=== PATIENT | male | born 1945 | race Caucasian/White ===

== ENCOUNTER 2019-10-10 08:30 | Inpatient (IN) | payer MEDICARE, BC ==
--- NOTE | 2019-09-30 18:26 | HP ---
HISTORY AND PHYSICAL: DATE OF ADMISSION/SURGERY: 10/10/19 DATE OF OFFICE VISIT: 09/29/19 SURGEON: Sydney Cunningham MD.* (DICTATED BY ARY LOVE) PROCEDURE: Left total knee arthroplasty. CHIEF COMPLAINT: Left knee pain. HISTORY OF PRESENT ILLNESS: Mr. Mehta is a 74-year-old gentleman with end - stage osteoarthritis of the left knee. He has failed conservative treatment and elected to proceed with left total knee arthroplasty. PAST MEDICAL HISTORY: Hypertension, hyperlipidemia, diabetes, sleep apnea, AFib , GERD, chronic kidney disease, and COPD. PAST SURGICAL HISTORY: Appendectomy, vasectomy, right total hip arthroplasty, cataract removal. CURRENT MEDICATIONS: 1. Rosuvastatin 10 mg daily. 2. Furosemide 20 mg a day. 3. Pantoprazole 40 mg a day. 4. Lisinopril 5 mg a day. 5. Amlodipine 200 mg a day. 6. Eliquis 5 mg twice a day. 7. Carvedilol 25 mg twice a day. 8. Spiriva daily. 9. Advair twice daily. 10. Iron. 11. Finasteride 5 mg a day. 12. Allopurinol 300 mg a day. 13. Vitamin D. ALLERGIES: No known drug allergies. FAMILY HISTORY: Cancer and coronary artery disease. SOCIAL HISTORY: He is a 74-year-old gentleman, lives with his . He does not smoke, use drugs or alcohol. REVIEW OF SYSTEMS: A complete 14-point review of systems was reviewed with the patient, is positive for GERD, COPD, chronic kidney disease, and some occasional shortness of breath. He denies a history of DVT, PE, hepatitis, HIV , or anesthesia problems. PHYSICAL EXAMINATION GENERAL: He is well developed, well nourished, in no acute distress. VITAL SIGNS: He stands 68 inches tall, weighs 318 pounds, blood pressure is 134 /72, heart rate is 86. HEENT: Normocephalic, atraumatic. NECK: Supple. No palpable lymph nodes. PULMONARY: Lungs are clear to auscultation bilaterally. CARDIO: Regular rate and rhythm. Strong S1 and S2. ABDOMEN: Soft, nontender, nondistended. NEUROLOGICAL: He is alert and oriented x3. MUSCULOSKELETAL: Left lower extremity: The skin is intact. There are no open wounds or abrasions. There is a moderate effusion of the left knee joint. Range of motion is 10 to 100 degrees of flexion. He has some tenderness along the medial joint line. There is a varus deformity of the knee. There is significant patellofemoral crepitus with range of motion. He has 2+ dorsalis pedis pulses. He is able to dorsiflex and plantarflex and has intact sensation. ASSESSMENT AND PLAN: Mr. Mehta is a 74-year-old gentleman with end-stage osteoarthritis of the left knee. He has failed conservative treatment and elected to proceed with left total knee arthroplasty. The surgery is scheduled for 10/10/[address] Cunningham discussed the risks and benefits of the surgery at today's visit and all of his questions were answered. He will follow up with Dr. Cunningham 2 weeks after the surgery. ARY LOVE [id number]/[facility] #: [id number] YAYA
[~2019-10-10 08:30] MED LIST: Buffered Lidocaine 1% SYRIN* 1 ML/SYRINGE INTRADERM ONE; Famotidine IV* 10 MG/ML 2 ML (20 mg) IV ONE; Lactated Ringers 1000 ML Bag* 1,000 ML IV SCH
--- OUTSIDE RECORDS SUMMARY | 2019-10-10 12:09 | XMS REPORT | Continuity of Care Document ---
:1945 External Reference #:[id number] Author Name Roma Velazquez MD Address [address] [place] [address] Care Team Providers Name Role Phone Carrol Powell M.D. - Care Team Information Histologist Technologist Family Medicine Problems Description No Information Available Social History Type Date Description Comments Sex Unknown Tobacco Use Start: Unknown Never Smoked Cigarettes Uses smokeless tobacco BID ETOH Use Currently consumes alcohol Frequently- [place], beer Tobacco Use Start: Unknown Patient has never smoked Allergies, Adverse Reactions, Alerts Description No Known Drug Allergies Medications Active Medications SIG Qnty Indications Ordering Date Provider Pantoprazole Sodium 1 by mouth every Unknown 08/26/2019 day 40mg Tablets Rosuvastatin Calcium 1 PO daily Sherry, 08/26/2019 Carrol Ragland 10mg Tablets M.DKiran Lisinopril 1 by mouth every 90tabs I44.7 Roma Velazquez MD 09/26/2018 5mg day Tablets Carvedilol 1 tab by mouth 180tabs Suzie Schmidt, 09/21/2017 25mg twice a day SKIN CARE SPECIALIST Tablets Advair Diskus 1 puff twice a day Unknown 05/31/2017 250-50mcg/Dose Aerosol Vitamin D2 1 by mouth every Unknown 05/30/2017 2000Unit day Tablets Spiriva Handihaler 1 by mouth everyday Unknown 05/30/2017 18mcg Capsules Allopurinol 1 by mouth every Unknown 05/30/2017 300mg day Tablets Finasteride 1 by mouth every Unknown 05/29/2017 5mg day Tablets Furosemide take 1 tablet once 90tabs Roma Velazquez MD 20mg daily Tablets Eliquis take 1 tablet twice 180tabs Roma Velazquez MD 5mg Tablets a day for nonvalvular a-fib Amiodarone HCL take 1 tablet once 90tabs Roma Velazquez MD 200mg daily Tablets History Medications Aspirin Adult Low Dose 1 by mouth every day Unknown 08/26/2019 - [address] Reece Description No Information Available Vital Signs Date Vital Result Comment 09/25/2019 11:13am Height 68 inches 5'8" Weight 316.50 lb BMI (Body Mass Index) 48.1 kg/m2 BP Systolic 130 mmHg LA BP Diastolic 74 mmHg LA Heart Rate 80 /min Regular 03/25/2019 1:11pm Height 68 inches 5'8" Weight 301.25 lb BMI (Body Mass Index) 45.8 kg/m2 BP Systolic 122 mmHg Ra BP Diastolic 66 mmHg Ra Heart Rate 84 /min Regular Results Description No Information Available Procedures Date Code Description Status 09/25/2019 42630 Echocardiography, Tranthoracic Real-Time Image Completed Documentation 09/25/2019 52510 Echocardiography, Tranthoracic Real-Time Image Completed Documentation Medical Devices Description No Information Available Encounters Type Date Location Provider Dx Diagnosis Office Visit 09/25/2019 CMP Cardiology AT Roma Velazquez MD Z01.810 Encounter for 11:15a [place] preprocedural cardiovascular examination I48.0 Paroxysmal atrial fibrillation I44.7 Left bundle-branch block, unspecified N18.9 Chronic kidney disease, unspecified E78.5 Hyperlipidemia, unspecified D64.9 Anemia, unspecified I50.20 Unspecified systolic (congestive) heart failure I35.0 Nonrheumatic aortic (valve) stenosis Assessments Date Code Description Provider 09/25/2019 I48.91 Unspecified atrial fibrillation Testing 09/25/2019 Z01.810 Encounter for preprocedural cardiovascular Roma Velazquez MD examination 09/25/2019 I44.7 Left bundle-branch block, unspecified Testing 09/25/2019 I48.0 Paroxysmal atrial fibrillation Roma Velazquez MD 09/25/2019 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 valves 09/25/2019 I44.7 Left bundle-branch block, unspecified Roma Velazquez MD 09/25/2019 N18.9 d chronic kidney disease Roma Velazquez MD 09/25/2019 E78.5 Hyperlipidemia, unspecified Roma Velazquez MD 09/25/2019 D64.9 Anemia, unspecified Roma Velazquez MD 09/25/2019 I50.20 Unspecified systolic (congestive) heart failure Roma Velazquez MD 09/25/2019 I35.0 Nonrheumatic aortic (valve) stenosis Roma Velazquez MD 09/25/2019 I48.91 Unspecified atrial fibrillation Roma Velazquez MD 09/25/2019 I44.7 Left bundle-branch block, unspecified Roma Velazquez MD 09/25/2019 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 Cunningham Functional Status Description No Information Available Mental Status Description No Information Available Referrals Description No Information Available
--- OUTSIDE RECORDS SUMMARY | 2019-10-10 12:09 | XMS REPORT | Continuity of Care Document ---
:1945 External Reference #:[id number] Author Name Nelli Tyler NP Address [address] [place] [address] Problems Active Problems Provider Date Obstructive sleep apnea syndrome Nelli Tyler NP Onset: 08/26/2019 Social History Type Date Description Comments Sex Unknown Smokeless Tobacco Current Smokeless Tobacco User, Uses 2 times Daily ETOH Use Occasionally consumes alcohol Allergies, Adverse Reactions, Alerts Description No Known Drug Allergies Medications Active Medications SIG Qnty Indications Ordering Date Provider Allopurinol qday Unknown 300mg Vitamin D qday Unknown 2000Units Capsules Carvedilol 1 by mouth bid 180tabs Unknown 25mg Tablets Aspirin qday Unknown 81mg Tablets Spiriva Handihaler one cap handihaler 90caps Unknown once a day 18mcg Capsules Advair Diskus 1 puff twice a day Unknown 250-50mcg/Dose Aerosol Finasteride 1 tablet by mouth Unknown 5mg daily for prostate Tablets Pantoprazole Sodium 1 by mouth every Unknown day 20mg Tablets Lisinopril 1 by mouth every Unknown 5mg day Tablets Eliquis 1 tab by mouth Unknown 5mg Tablets twice a day Furosemide 1 by mouth every Unknown 20mg day Tablets Amiodarone HCL 1 by mouth every Unknown 200mg day Tablets Ferrous Sulfate 1 by mouth 3 times Unknown a day 325(65Fe) mg Tablets Vitamin B12 1 by mouth every Unknown 1000mcg day Tablets ER Immunizations Description No Information Available Vital Signs Date Vital Result Comment 08/26/2019 2:31pm Weight 318.00 lb Height 68.75 inches 5'8.75" BMI (Body Mass Index) 47.3 kg/m2 BP Systolic 148 mmHg BP Diastolic 77 mmHg Heart Rate 77 /min O2 % BldC Oximetry 91 % Body Temperature 98.2 F [place] Score 3 Pain Level 0 08/26/2018 10:10am Weight 313.25 lb Height 68.75 inches 5'8.75" BMI (Body Mass Index) 46.6 kg/m2 BP Systolic 156 mmHg BP Diastolic 89 mmHg Heart Rate 80 /min O2 % BldC Oximetry 96 % Body Temperature 98.7 F [place] Score 3 Pain Level 0 Results Description No Information Available Procedures Description No Information Available Medical Devices Description No Information Available Encounters Type Date Location Provider Dx Diagnosis Office Visit 08/26/2019 Main Office Nelli Tyler, G47.33 Obstructive sleep 2:30p CREEL CLERK apnea (adult) (pediatric) E66.01 Morbid (severe) obesity due to excess calories Assessments Date Code Description Provider 08/26/2019 G47.33 Obstructive sleep apnea (adult) (pediatric) Nelli Tyler NP 08/26/2019 E66.01 Morbid (severe) obesity due to excess calories Nelli Tyler NP Plan of Treatment No Information Available Functional Status Description No Information Available Mental Status Description No Information Available Referrals Description No Information Available
--- OUTSIDE RECORDS SUMMARY | 2019-10-10 12:09 | XMS REPORT | Continuity of Care Document ---
:1945 External Reference #:[id number] Author Name Raciel Cheema M.D. Address [address] [place] [address] Care Team Providers Name Role Phone Matthieu Coley M.D. - Urology Care Team Information Senior Db2 Systems Programmer [phone] Carrol Powell MD - Family Medicine Care Team Information Senior Db2 Systems Programmer Problems Active Problems Provider Date Essential hypertension Raciel Cheema M.D. Onset: 08/06/2015 Gout Raciel Cheema M.D. Onset: 08/06/2015 Hypercholesterolemia Raciel Cheema M.D. Onset: 08/06/2015 Seasonal allergy Raciel Cheema M.D. Onset: 08/06/2015 Hearing loss Raciel Cheema M.D. Onset: 08/06/2015 Sleep apnea Raciel Cheema M.D. Onset: 08/06/2015 Chronic obstructive lung disease Raciel Cheema M.D. Onset: 08/06/2015 Gastroesophageal reflux disease Raciel Cheema M.D. Onset: 08/06/2015 Type 2 diabetes mellitus Raciel Cheema M.D. Onset: 08/06/2015 Large prostate Onset: Nuclear senile cataract Raciel Cheema M.D. Onset: 08/09/2015 Venous retinal branch occlusion Raciel Cheema M.D. Onset: 08/09/2015 Presence of intraocular lens Raciel Cheema M.D. Onset: 09/02/2015 Myopia Bettye Langley O.D. Onset: 11/30/2015 Regular astigmatism Bettye Langley O.D. Onset: 11/30/2015 Presbyopia Bettye Langley O.D. Onset: 11/30/2015 Primary iridocyclitis Raciel Cheema M.D. 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 Onset: 07/16/2017 nonproliferative diabetic retinopathy without macular edema, bilateral Atrial fibrillation Onset: Social History Type Date Description Comments Sex Unknown ETOH Use Occasionally consumes alcohol Tobacco Use Start: Unknown Patient has never smoked Recreational Drug Use Denies Drug Use Smoking Status Reviewed: 10/09/19 Patient has never smoked Allergies, Adverse Reactions, Alerts Description No Known Drug Allergies Medications Active Medications SIG Qnty Indications Ordering Provider Date Finasteride Vorha, Matthieu 5mg Tablets M.DKiran Spiriva Handihaler inhale contents Unknown 18mcg of 1 capsule by Capsules mouth once daily Carvedilol take 1 tablet by Unknown 12.5mg Tablets mouth twice a day Advair Diskus DixonMishaSalvatore 250-50mcg/Dose Aerosol Allopurinol take 1 tablet by Unknown 300mg Tablets mouth once daily Vitamin D every day Unknown 2000Unit Tablets Lisinopril take 1 tablet Unknown 10mg Tablets once daily Ferosul Unknown 325(65Fe) mg Tablets Furosemide Unknown 20mg Tablets Eliquis Unknown 5mg Tablets Amiodarone HCL Unknown 200mg Tablets Rosuvastatin Calcium take 1 tablet by Unknown 10mg mouth once daily Tablets Pantoprazole Sodium Carrol Powell 40mg MD Tablets DR Acetaminophen Unknown 500mg Tablets Vitamin B12 Unknown 1000mcg Tablets ER Immunizations Description No Information Available Vital Signs Description No Information Available Results Description No Information Available Procedures Description No Information Available Medical Devices Description No Information Available Encounters Description No Information Available Assessments Date Code Description Provider 10/09/2019 E11.3293 Type 2 diabetes mellitus with mild Raciel Cheema M.D. 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 right eye, stable 10/09/2019 Z96.1 Presence of intraocular lens Raciel Cheema M.D. Plan of Treatment 10/09/2019 - Raciel Cheema M.D.E11.3293 Type 2 diabetes mellitus with mild nonproliferative diabeticComments:Smoking can increase the risk of developing or worsening any eye related disease, as well as affect your overall health. If you are a smoker, we strongly recommend that you quit.If you are not a smoker , we strongly recommend that you do not start. I can detect diabetic changes in your eyes. Proper control of your diabetes is important for the health of your eyes. It is important that you keep all of your follow up appointments. Dr. Cheema has sent a report to your primary care doctor, letting them know the current status of your retina.Follow up:6 Month Follow Up OCT MAC You can expect to have your eyes dilated at your next visit. If Dr. Owensders any additional testing, it may require extra time. We recommend that you bring sunglasses, asdilation drops often make you light sensitive until they wear off. We always recommend you bring someone to drive you home if you are uncomfortable driving with your eyes dilated. If you have any questions before your next visit, feel free to call our office at .H34.8312 Tributary (branch) retinal vein occlusion, right eye, stableComments:You have a Branch Retinal Vein Occlusion in your right eye. This is when the small veins of the retina have become blocked. Please follow any instructions given to you by Dr. Cheema.Z96.1 Presence of intraocular lensComments:The artificial lens implants in both eyes appear to be stable at this time. Functional Status Description No Information Available Mental Status Description No Information Available Referrals Description No Information Available
--- OUTSIDE RECORDS SUMMARY | 2019-10-10 12:09 | XMS REPORT | Continuity of Care Document ---
:1945 External Reference #:[id number] Author Name Sydney Cunningham M.D. (transmitted by agent of provider Jessika Mckeon) Address [address] [place] [address] Care Team Providers Name Role Phone Carrol Powell MD - Family Care Team Information Pathology Collector [phone] Medicine Problems Active Problems Provider Date Morbid obesity Sydney Cunningham M.D. Onset: 08/29/2019 Localized, primary osteoarthritis Sydney Cunningham M.D. Onset: 08/29/2019 Social History Type Date Description Comments Sex Unknown ETOH Use Denies alcohol use Tobacco Use Start: Unknown Patient has never smoked Smoking Status Reviewed: 08/29/19 Patient has never smoked Exercise Type/Frequency Does not exercise Allergies, Adverse Reactions, Alerts Description No Information Available Medications Active Medications SIG Qnty Indications Ordering Date Provider Aspirin 81 1 by mouth every 30tabs Other Ordering 08/29/2019 81mg day Provider Tablets Vitamin D2 take 50,000 units 12tabs Other Ordering 08/29/2019 2000Unit once a week Provider Tablets Ferrous Sulfate 1 by mouth every 30tabs Other Ordering 08/29/2019 day Provider 325(65Fe) mg Tablets Advair Diskus 1 puff twice a day 60units Other Ordering 08/29/2019 Provider 250-50mcg/Dose Aerosol Spiriva Handihaler take one 30caps Other Ordering 08/29/2019 inhalation a day Provider 18mcg Capsules Carvedilol 1 tab by mouth 180tabs Other Ordering 08/29/2019 25mg twice a day Provider Tablets Eliquis 1 by mouth twice a Other Ordering 08/29/2019 5mg Tablets day Provider Amiodarone HCL 1 by mouth every 90tabs Other Ordering 08/29/2019 200mg day Provider Tablets Lisinopril 1 by mouth every 30tabs Other Ordering 08/29/2019 5mg day Provider Tablets Pantoprazole Sodium 1 by mouth every 90tabs Other Ordering 08/29/2019 day Provider 20mg Tablets DR Allopurinol 1 by mouth every 90tabs Other Ordering 08/29/2019 300mg day Provider Tablets Finasteride 1 by mouth every 30tabs Other Ordering 08/29/2019 5mg day Provider Tablets Immunizations Description No Information Available Vital Signs Date Vital Result Comment 08/29/2019 10:34am Height 68 inches 5'8" Weight 317.00 lb Heart Rate 60 /min BP Systolic 136 mmHg BP Diastolic 72 mmHg Body Temperature 97.3 F Pain Level 8 BMI (Body Mass Index) 48.2 kg/m2 Results Description No Information Available Procedures Description No Information Available Medical Devices Description No Information Available Encounters Description No Information Available Assessments Date Code Description Provider 08/29/2019 M25.562 Pain in left knee Sydney Cunningham M.D. 08/29/2019 M25.462 Effusion, left knee Sydney Cunningham M.D. 08/29/2019 M17.12 Unilateral primary osteoarthritis, left knee Sydney Cunningham M.D. 08/29/2019 E66.01 Morbid (severe) obesity due to excess calories Sydney Cunningham M.D. Plan of Treatment 08/29/2019 - Sydney Cunningham M.D.M25.562 Pain in left kneeFollow up:Follow up: 7 -10 days before vbaxsgfT37.462 Effusion, left kneeM17.12 Unilateral primary osteoarthritis, left kneeE66.01 Morbid (severe) obesity due to excess calories Functional Status Description No Information Available Mental Status Description No Information Available Referrals Description No Information Available
--- OUTSIDE RECORDS SUMMARY | 2019-10-10 12:09 | XMS REPORT | Continuity of Care Document ---
:1945 External Reference #:[id number] Author Name Carrol Powell MD Address [address] [place] [address] Care Team Providers Name Role Phone Sophie Bernal - Gastroenterology Care Team Information Manager Reporting Roma Velazquez MD - Cardiovascular Care Team Information Manager Reporting [phone] Disease Jules Palafox DPM - Secretary Receptionist Care Team Information Manager Reporting [phone] Tutu Raygoza MD Care Team Information Manager Reporting [phone] - Otolaryngology Care Team Information Manager Reporting Sydney Cunningham DR - Adult Care Team Information Manager Reporting [phone] Reconstructive Orthopaedic Surgery Raciel Cheema MD - Ophthalmology Care Team Information Manager Reporting Problems Active Problems Provider Date Vitamin D deficiency Salvatore Metcalf DO Onset: 05/14/2014 Hearing loss Salvatore Metcalf DO Onset: 05/07/2013 History of polyp of colon Salvatore Metcalf DO Onset: 05/07/2013 Degenerative joint disease involving multiple Salvatore Metcalf DO Onset: 10/2013 joints Chronic obstructive lung disease Salvatore Metcalf DO Onset: 11/27/2011 Obstructive sleep apnea syndrome Salvatore Metcalf DO Onset: 06/21/2010 Gout Salvatore Metcalf DO Onset: 04/01/2010 Primary cardiomyopathy Salvatore Metcalf DO Onset: 04/01/2010 Mixed hyperlipidemia Salvatore Metcalf DO Onset: 04/01/2010 Type 2 diabetes mellitus Salvatore Metcalf DO Onset: 04/01/2010 Benign essential hypertension Salvatore Metcalf DO Onset: 04/01/2010 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 Gastroesophageal reflux disease Carrol Powell MD Onset: 04/18/2018 Prosthetic arthroplasty of the hip Carrol Powell MD Onset: 04/18/2018 Left bundle branch block Carrol Powell MD Onset: 09/26/2018 Benign prostatic hypertrophy with outflow Carrol Powell MD Onset: 2017 obstruction Morbid obesity Carrol Powell MD Onset: 10/22/2018 Chronic kidney disease stage 3 Carrol Powell MD Onset: 03/26/2019 Ex-smoker Carrol Powell MD Onset: 03/26/2019 Paroxysmal atrial fibrillation Carrol Powell MD Onset: 04/30/2019 Hypertensive heart disease with congestive Carrol Powell MD Onset: 2018 heart failure Pure hypercholesterolemia Onset: 09/20/2015 Social History Type Date Description Comments Sex Unknown Tobacco Use Start: Unknown Never Smoked Cigarettes Smokeless Tobacco Former Smokeless Tobacco User, Used 4 Times Daily ETOH Use Denies alcohol use Tobacco Use Start: Unknown End: Patient is a former smoked cigars and Unknown smoker pipes in college, feels he smoked more than 100 Recreational Drug Use Denies Drug Use Smoking Status Reviewed: 09/23/19 Patient is a former smoked cigars and smoker pipes in college, feels he smoked more than 100 Allergies, Adverse Reactions, Alerts Description No Known Drug Allergies Medications Active Medications SIG Qnty Indications Ordering Date Provider Advair Diskus 1 puff twice a 180units J44.9 [place], 09/23/2019 day--Mao Per MD Carrol 250-50mcg/Dose Insurance Aerosol Protonix 1 by mouth daily 90tabs K21.9 [place], 07/03/2019 40mg 30min before a meal MD Carrol Tablets DR Iron High-Potency 1 by mouth a day, 30tabs D50.9 [place], 05/09/2019 take with a vit c MD Carrol 325mg Tablets source, don't take with pantoprazole Oxygen 2L at night with G47.33 Sherry, 04/30/2019 Misc cpap MD Carrol Rosuvastatin 1 by mouth every 90tabs E78.2 Sherry, 03/26/2019 Calcium day MD Carrol 10mg Tablets Amiodarone HCL 1 by mouth every I50.21 Roma Velazquez, 09/24/2018 day 200mg Tablets I10 I48.0 Lisinopril 1 by mouth every 90tabs I42.9 Carrol Powell MD 04/18/2018 5mg Tablets day in the morning I10 E11.21 Nystatin-Triamcinolone apply to 180gm Carrol Powell, 05/14/2014 affected area 111944-1.1Unit/GM-% Cream twice a day as needed Spiriva Handihaler 1 puff by 90caps J44.9 Carrol Powell, 03/23/2011 18mcg Capsules mouth every d Allopurinol 1 by mouth 90tabs M10.9 Carrol Powell, 03/23/2010 300mg Tablets every day Aspirin Adult Low Strength 1 by mouth E11.21 Carrol Powell, 03/11/2010 81mg Tablets every day MD [place] Vitamin D2 1 by mouth Unknown 2000Unit Tablets every day Finasteride 1 by mouth N40.1 Matthieu Rojas 5mg Tablets every day Carvedilol take 1 tablet 180tabs I42.9 Carrol Powell, 25mg Tablets by mouth twice MD a day I10 I48.0 Furosemide 1 by mouth every day I50.21 Roma Velazquez MD 20mg Tablets I10 I48.0 Eliquis 1 by mouth twice a day I48.0 Roma Velazquez MD 5mg Tablets Cpap G47.[address] Device Vitamin B-12 1 by mouth, daily with E53.9 Unknown 500mcg Tablets meal with dinner with protein Immunizations CPT Code Status Date Vaccine Reaction Lot # [id number] Given 09/26/2018 Flu Vaccine NOS GIVEN AT PHARMACY Q2037 Given 07/09/2017 Fluvirin Immunization Given at [facility] pharmacy 72777 Given 11/17/2016 Pneumococcal 23 Immunization Im inj completed, Pt [id number] Adult Or Immunosuppressed tolerated well Patient 09824 Given 10/07/2015 Fluzone Highdose Age 65 And [facility] Over Preservative & Antibiotic Free 63107 Given 09/27/2015 Prevnar 13 Pneumococal Im inj completed, Pt [id number] Conjugate Vaccine tolerated well 28220 Given 09/10/2013 Afluria Or Fluvirin Flu Vac Intramuscular Q2039 Refused 06/30/2019 Flu Vaccine NOS will get in fall 14303 Refused 04/30/2019 Shingrix (Shingles) Zoster Vaccine HZV, Recombinant, Subunit, Adj 57824 Refused 04/30/2019 Tdap (Adacel) Ages 7 And Above Only 17353 Refused 03/26/2019 Shingrix (Shingles) Zoster Vaccine HZV, Recombinant, Subunit, Adj 44485 Refused 03/26/2019 Tdap (Adacel) Ages 7 And Above Only Q2039 Refused 09/26/2018 Flu Vaccine NOS WILL GET AT PHARMACY 07962 Refused 09/26/2018 Shingrix (Shingles) Zoster Vaccine WILL GET AT [facility] HZV, Recombinant, Subunit, Adj 10885 Refused 09/26/2018 Tdap (Adacel) Ages 7 And Above Only WILL GET ATPHARMACY Vital Signs Date Vital Result Comment 09/23/2019 10:35am Body Temperature 98.4 F Weight 318.00 lb Heart Rate 74 /min BP Systolic 130 mmHg BP Diastolic 76 mmHg Respiratory Rate 20 /min Height 68 inches 5'8" O2 % BldC Oximetry 94 % ra BMI (Body Mass Index) 48.3 kg/m2 06/30/2019 2:47pm Weight 307.00 lb Heart Rate 72 /min BP Systolic 126 mmHg BP Diastolic 74 mmHg Respiratory Rate 20 /min Height 68 inches 5'8" O2 % BldC Oximetry 93 % ra BMI (Body Mass Index) 46.7 kg/m2 Results Test Acquired Date Facility Test Result H/L Range Note Laboratory test 09/15/2019 [facility] Iron, Total 74 g/dL 65-175 1 finding CBC with Auto 09/15/2019 [facility] WBC 4.8 K/uL 4.1-11.0 Diff-fcmg RBC 4.62 M/uL 4.60-6.10 Hemoglobin 14.5 gm/dL 13.5-18.0 Hematocrit 43.1 % 41.0-53.0 MCV 93.4 fL 80.0-97.0 MCH 31.4 pg 27.0-32.0 MCHC 33.6 g/dL 32.0-36.0 RDW 15.4 % High 11.5-14.5 PLT Count 159 K/ul 140-400 MPV 9.1 FL 7.1-10.7 Neutrophil 59.8 % 35.0-75.0 Lymphocyte 28.6 % 16.0-52.0 Monocyte 8.6 % 2.0-10.0 Eosinophil 2.0 % 0.0-5.0 Basophil 1.0 % 0.0-4.0 Abs Neutrophils 2.8 K/uL 2.1-8.0 Abs Lymphocytes 1.4 K/uL 0.8-5.5 Abs Monocytes 0.4 K/uL 0.1-1.0 Abs Eosinophils 0.1 K/uL 0.0-0.5 Abs Basophils 0.0 K/uL 0.0-0.3 Lipid 09/15/2019 [facility] Cholesterol 134 mg/dL 50-199 Triglycerides 82 mg/dL 30-200 HDL 54 mg/dL 29-71 2 Chol/ HDL Ratio 2.5 ratio Low 4.0-6.7 VLDL 16 mg/dL 2-29 LDL (Calc) 64 mg/dL 20-99 3 Laboratory test finding 09/15/2019 [facility] CPK 63 U/L 12-199 Comprehensive Met Panel-FCMG 09/15/2019 [facility] Sodium 141 mmol/L 135- 146 4 Potassium 4.4 mmol/L 3.5-5.2 Chloride# 103 mmol/L 97-110 5 Carbon Dioxide 30 mmol/L 24-34 Calcium 9.2 mg/dL 8.5-10.5 6 Glucose 102 mg/dL 70-105 BUN 20 mg/dL 6-26 Creatinine 1.0 mg/dL 0.5-1.4 Total Protein 6.5 g/dL 6.0-8.0 Albumin 3.8 g/dL 3.6-4.9 Globulin 2.7 g/dL 2.0-3.5 A/G Ratio 1.4 Ratio 1.0-2.2 Total Bilirubin 0.4 mg/dL 0.1-1.3 Alkaline Phosphatase 71 U/L 24-140 Alt 26 U/L 3-42 Ast 22 U/L 8-42 Anion Gap 8 mmol/L 5-15 7 Female Egfr 54 Low >60 8 Male Egfr 72 >60 9 [facility] test [facility] U[facility] Acid 5.1 mg/dL 2.6-8.4 Hemoglobin A1c 09/15/2019 [facility] Hemoglobin A1c 5.6 % 4.1-5.9 Estimated Average Glucose Calc 114 mg/dL 71-140 CBC with [facility] 4.9 K/uL 4.1-11.0 10 RBC 4.67 M/uL 4.60-6.10 Hemoglobin 14.3 gm/dL 13.5-18.0 Hematocrit 44.0 % 41.0-53.0 MCV 94.3 fL 80.0-97.0 MCH 30.5 pg 27.0-32.0 MCHC 32.4 g/dL 32.0-36.0 RDW 16.7 % High 11.5-14.5 PLT Count 170 K/ul 140-400 MPV 8.6 FL 7.1-10.7 Neutrophil 60.7 % 35.0-75.0 Lymphocyte 28.1 % 16.0-52.0 Monocyte 7.8 % 2.0-10.0 Eosinophil 2.5 % 0.0-5.0 Basophil 0.9 % 0.0-4.0 Abs Neutrophils 3.0 K/uL 2.1-8.0 Abs Lymphocytes 1.4 K/uL 0.8-5.5 Abs Monocytes 0.4 K/uL 0.1-1.0 Abs Eosinophils 0.1 K/uL 0.0-0.5 Abs Basophils 0.0 K/uL 0.0-0.3 Iron Panel 08/01/2019 [facility] Iron, Total 70 g/dL 65-175 Transferrin 283.0 mg/dL 203.0-362.0 Tibc (calc) 396 g/dL 261-478 % Iron Saturation 17.7 % 13.0-45.0 Laboratory test finding 07/01/2019 [facility] Iron, Total 45 g/dL Low 65- 175 11 CBC with Auto Diff-fcmg 07/01/2019 [place] WBC 5.9 K/uL 4.1-11.0 RBC 4.33 M/uL Low 4.60-6.10 Hemoglobin 13.1 gm/dL Low 13.5-18.0 Hematocrit 40.0 % Low 41.0-53.0 MCV 92.4 fL 80.0-97.0 MCH 30.3 pg 27.0-32.0 MCHC 32.8 g/dL 32.0-36.0 RDW 17.3 % High 11.5-14.5 PLT Count 197 K/ul 140-400 MPV 8.8 FL 7.1-10.7 Neutrophil 66.4 % 35.0-75.0 Lymphocyte 21.4 % 16.0-52.0 Monocyte 9.2 % 2.0-10.0 Eosinophil 1.6 % 0.0-5.0 Basophil 1.4 % 0.0-4.0 Abs Neutrophils 3.9 K/uL 2.1-8.0 Abs Lymphocytes 1.3 K/uL 0.8-5.5 Abs Monocytes 0.5 K/uL 0.1-1.0 Abs Eosinophils 0.1 K/uL 0.0-0.5 Abs Basophils 0.1 K/uL 0.0-0.3 Lipid 07/01/2019 [facility] Cholesterol 128 mg/dL 50-199 Triglycerides 79 mg/dL 30-200 HDL 54 mg/dL 29-71 12 Chol/ HDL Ratio 2.4 ratio Low 4.0-6.7 VLDL 16 mg/dL 2-29 LDL (Calc) 58 mg/dL 20-99 13 Laboratory test finding 07/01/2019 [facility] CPK 42 U/L 12-199 Comprehensive Met Panel-FCMG 07/01/2019 [facility] Sodium 140 mmol/L 135- 146 14 Potassium 4.7 mmol/L 3.5-5.2 Chloride# 103 mmol/L 97-110 15 Carbon Dioxide 27 mmol/L 24-34 Calcium 9.0 mg/dL 8.5-10.5 16 Glucose 102 mg/dL 70-105 BUN 27 mg/dL High 6-26 Creatinine 1.1 mg/dL 0.5-1.4 Total Protein 6.7 g/dL 6.0-8.0 Albumin 3.8 g/dL 3.6-4.9 Globulin 2.9 g/dL 2.0-3.5 A/G Ratio 1.3 Ratio 1.0-2.2 Total Bilirubin 0.3 mg/dL 0.1-1.3 Alkaline Phosphatase 69 U/L 24-140 Alt 16 U/L 3-42 Ast 16 U/L 8-42 Anion Gap 10 mmol/L 5-15 17 Female Egfr 49 Low >60 18 Male Egfr 65 >60 19 Hemoglobin A1c 06/23/2019 [facility] Hemoglobin A1c 5.3 % 4.1-5.9 20 Estimated Average Glucose Calc 105 mg/dL 71-140 Basic (BMP) 06/23/2019 [facility] Sodium 141 mmol/L 135-146 21 Potassium 4.3 mmol/L 3.5-5.2 Chloride# 103 mmol/L 97-110 22 Carbon Dioxide 29 mmol/L 24-34 Glucose 97 mg/dL 70-105 BUN 20 mg/dL 6-26 Creatinine 1.1 mg/dL 0.5-1.4 Calcium 9.1 mg/dL 8.5-10.5 23 Female Egfr 50 Low >60 24 Male Egfr 66 >60 25 Anion Gap 9 mmol/L 5-15 26 CBC with Auto Diff-fcmg 05/21/2019 [facility] WBC 6.7 K/uL 4.1-11.0 27 RBC 3.99 M/uL Low 4.60-6.10 Hemoglobin 11.7 gm/dL Low 13.5-18.0 Hematocrit 36.6 % Low 41.0-53.0 MCV 91.8 fL 80.0-97.0 MCH 29.4 pg 27.0-32.0 MCHC 32.0 g/dL 32.0-36.0 RDW 15.8 % High 11.5-14.5 PLT Count 215 K/ul 140-400 MPV 8.3 FL 7.1-10.7 Neutrophil 62.3 % 35.0-75.0 Lymphocyte 25.6 % 16.0-52.0 Monocyte 9.4 % 2.0-10.0 Eosinophil 1.9 % 0.0-5.0 Basophil 0.8 % 0.0-4.0 Abs Neutrophils 4.2 K/uL 2.1-8.0 Abs Lymphocytes 1.7 K/uL 0.8-5.5 Abs Monocytes 0.6 K/uL 0.1-1.0 Abs Eosinophils 0.1 K/uL 0.0-0.5 Abs Basophils 0.1 K/uL 0.0-0.3 Iron Panel 05/21/2019 [facility] Iron, Total 53 g/dL Low 65-175 Transferrin 308.0 mg/dL 203.0-362.0 Tibc (calc) 431 g/dL 261-478 % Iron Saturation 12.3 % Low 13.0-45.0 Laboratory test finding 05/21/2019 [facility] Vitamin B12 426 pg/mL 180- 914 TSH 2.42 uIU/mL 0.35-4.94 Comprehensive Met Panel-FCMG 05/21/2019 [facility] Sodium 138 mmol/L 135- 146 28 Potassium 4.4 mmol/L 3.5-5.2 Chloride# 100 mmol/L 97-110 29 Carbon Dioxide 28 mmol/L 24-34 Calcium 9.3 mg/dL 8.5-10.5 30 Glucose 102 mg/dL 70-105 BUN 36 mg/dL High 6-26 Creatinine 1.6 mg/dL High 0.5-1.4 Total Protein 6.5 g/dL 6.0-8.0 Albumin 3.8 g/dL 3.6-4.9 Globulin 2.7 g/dL 2.0-3.5 A/G Ratio 1.4 Ratio 1.0-2.2 Total Bilirubin 0.4 mg/dL 0.1-1.3 Alkaline Phosphatase 76 U/L 24-140 Alt 15 U/L 3-42 Ast 14 U/L 8-42 Anion Gap 10 mmol/L 5-15 31 Female Egfr 32 Low >60 32 Male Egfr 43 Low >60 33 Lipid 05/21/2019 [facility] Cholesterol 135 mg/dL 50-199 Triglycerides 77 mg/dL 30-200 HDL 58 mg/dL 29-71 34 Chol/ HDL Ratio 2.3 ratio Low 4.0-6.7 VLDL 15 mg/dL 2-29 LDL (Calc) 62 mg/dL 20-99 35 Laboratory test finding 05/21/2019 [facility] CPK 46 U/L 12-199 Uric Acid 5.4 mg/dL 2.6-8.4 CBC with Auto Diff-fcmg 04/30/2019 [facility] WBC 6.8 K/uL 4.1-11.0 36 RBC 3.97 M/uL Low 4.60-6.10 Hemoglobin 11.9 gm/dL Low 13.5-18.0 Hematocrit 36.1 % Low 41.0-53.0 MCV 90.8 fL 80.0-97.0 MCH 29.9 pg 27.0-32.0 MCHC 32.9 g/dL 32.0-36.0 RDW 14.8 % High 11.5-14.5 PLT Count 235 K/ul 140-400 MPV 8.7 FL 7.1-10.7 Neutrophil 68.0 % 35.0-75.0 Lymphocyte 19.4 % 16.0-52.0 Monocyte 9.8 % 2.0-10.0 Eosinophil 2.0 % 0.0-5.0 Basophil 0.8 % 0.0-4.0 Abs Neutrophils 4.7 K/uL 2.1-8.0 Abs Lymphocytes 1.3 K/uL 0.8-5.5 Abs Monocytes 0.7 K/uL 0.1-1.0 Abs Eosinophils 0.1 K/uL 0.0-0.5 Abs Basophils 0.1 K/uL 0.0-0.3 Iron Panel 04/30/2019 [facility] Iron, Total 38 g/dL Low 65-175 Transferrin 342.0 mg/dL 203.0-362.0 Tibc (calc) 479 g/dL High 261-478 % Iron Saturation 7.9 % Low 13.0-45.0 Laboratory test finding 04/30/2019 [facility] Vitamin B12 270 pg/mL 180- 914 Lipid 04/30/2019 [facility] Cholesterol 138 mg/dL 50-199 Triglycerides 117 mg/dL 30-200 HDL 53 mg/dL 29-71 37 Chol/ HDL Ratio 2.6 ratio Low 4.0-6.7 VLDL 23 mg/dL 2-29 LDL (Calc) 62 mg/dL 20-99 38 Laboratory test finding 04/30/2019 [facility] CPK 47 U/L 12-199 Comprehensive Met Panel-FCMG 04/30/2019 [facility] Sodium 139 mmol/L 135- 146 39 Potassium 4.9 mmol/L 3.5-5.2 Chloride# 102 mmol/L 97-110 40 Carbon Dioxide 31 mmol/L 24-34 Calcium 9.4 mg/dL 8.5-10.5 41 Glucose 91 mg/dL 70-105 BUN 41 mg/dL High 6-26 Creatinine 1.4 mg/dL 0.5-1.4 Total Protein 6.6 g/dL 6.0-8.0 Albumin 4.0 g/dL 3.6-4.9 Globulin 2.6 g/dL 2.0-3.5 A/G Ratio 1.5 Ratio 1.0-2.2 Total Bilirubin 0.4 mg/dL 0.1-1.3 Alkaline Phosphatase 74 U/L 24-140 Alt 18 U/L 3-42 Ast 17 U/L 8-42 Anion Gap 6 mmol/L 5-15 42 Female Egfr 37 Low >60 43 Male Egfr 49 Low >60 44 Laboratory test finding 04/30/2019 [facility] TSH 1.32 uIU/mL 0.35-4.94 1 before visit 08/2020 2 Per NCEP ATP III Guidelines: Results lower than 40 mg/dL are suggestive of increased risk for coronary artery disease. Results > or = to 60 mg/dL are considered a negative risk factor. 3 Per NCEP ATP III Guidelines: Normal Population <130 Patients with medical conditions: CHD/DM Optimal: <100 Borderline high: 130-159 High: 160-189 Very high: >189 4 Updated reference range on new analyzer 5 Updated reference range on new analyzer 6 Updated reference range 03-26-2019 7 Updated Reference Range 8 Concerning GFR Guidelines for Americans: Normal function or mild renal disease, if clinically at risk: >/= 60 mL/min Moderately decreased: 30-59 Severely decreased: 15-29 Renal failure: <15 There is reduced accuracy above 60ml/min/1.73 m squared, but the numeric value may be clinically useful in the near 60 range 9 Concerning GFR Guidelines: Normal function or mild renal disease, if clinically at risk: >/= 60 mL/min Moderately decreased: 30-59 Severely decreased: 15-29 Renal failure: <15 There is reduced accuracy above 60ml/min/1.73 m squared, but the numeric value may be clinically useful in the near 60 range Glomerular Filtration Rate (GFR) is estimated based on the CKD-EPI equation, which assumes a steady state for creatinine as recommended by the National Kidney Disease Education Program in conjunction with the National Institutes of Health and the National Kidney Foundation. Clinical conditions in which it may be necessary to measure GFR by using clearance methods include extremes of age and body size, severe malnutrition or obesity, diseases of skeletal muscle, paraplegia or quadriplegia, vegetarian diet, rapidly changing kidney function, and calculation of the dose of potentially toxic drugs that are excreted by the kidneys. 10 fy surgeon in 1 mo ; wants knee replacement --dr davian bone with surg, if stable noti 11 now letter 12 Per NCEP ATP III Guidelines: Results lower than 40 mg/dL are suggestive of increased risk for coronary artery disease. Results > or = to 60 mg/dL are considered a negative risk factor. 13 Per NCEP ATP III Guidelines: Normal Population <130 Patients with medical conditions: CHD/DM Optimal: <100 Borderline high: 130-159 High: 160-189 Very high: >189 14 Updated reference range on new analyzer 15 Updated reference range on new analyzer 16 Updated reference range 03-26-2019 17 Updated Reference Range 18 Concerning GFR Guidelines for Americans: Normal function or mild renal disease, if clinically at risk: >/= 60 mL/min Moderately decreased: 30-59 Severely decreased: 15-29 Renal failure: <15 There is reduced accuracy above 60ml/min/1.73 m squared, but the numeric value may be clinically useful in the near 60 range 19 Concerning GFR Guidelines: Normal function or mild renal disease, if clinically at risk: >/= 60 mL/min Moderately decreased: 30-59 Severely decreased: 15-29 Renal failure: <15 There is reduced accuracy above 60ml/min/1.73 m squared, but the numeric value may be clinically useful in the near 60 range Glomerular Filtration Rate (GFR) is estimated based on the CKD-EPI equation, which assumes a steady state for creatinine as recommended by the National Kidney Disease Education Program in conjunction with the National Institutes of Health and the National Kidney Foundation. Clinical conditions in which it may be necessary to measure GFR by using clearance methods include extremes of age and body size, severe malnutrition or obesity, diseases of skeletal muscle, paraplegia or quadriplegia, vegetarian diet, rapidly changing kidney function, and calculation of the dose of potentially toxic drugs that are excreted by the kidneys. 20 before visit 06/2019 21 Updated reference range on new analyzer 22 Updated reference range on new analyzer 23 Updated reference range 03-26-2019 24 Concerning GFR Guidelines for Americans: Normal function or mild renal disease, if clinically at risk: >/= 60 mL/min Moderately decreased: 30-59 Severely decreased: 15-29 Renal failure: <15 There is reduced accuracy above 60ml/min/1.73 m squared, but the numeric value may be clinically useful in the near 60 range 25 Concerning GFR Guidelines: Normal function or mild renal disease, if clinically at risk: >/= 60 mL/min Moderately decreased: 30-59 Severely decreased: 15-29 Renal failure: <15 There is reduced accuracy above 60ml/min/1.73 m squared, but the numeric value may be clinically useful in the near 60 range Glomerular Filtration Rate (GFR) is estimated based on the CKD-EPI equation, which assumes a steady state for creatinine as recommended by the National Kidney Disease Education Program in conjunction with the National Institutes of Health and the National Kidney Foundation. Clinical conditions in which it may be necessary to measure GFR by using clearance methods include extremes of age and body size, severe malnutrition or obesity, diseases of skeletal muscle, paraplegia or quadriplegia, vegetarian diet, rapidly changing kidney function, and calculation of the dose of potentially toxic drugs that are excreted by the kidneys. 26 Updated Reference Range 27 1m , letter, borderline anemia, if abnl needs workup 28 Updated reference range on new analyzer 29 Updated reference range on new analyzer 30 Updated reference range 03-26-2019 31 Updated Reference Range 32 Concerning GFR Guidelines for Americans: Normal function or mild renal disease, if clinically at risk: >/= 60 mL/min Moderately decreased: 30-59 Severely decreased: 15-29 Renal failure: <15 There is reduced accuracy above 60ml/min/1.73 m squared, but the numeric value may be clinically useful in the near 60 range 33 Concerning GFR Guidelines: Normal function or mild renal disease, if clinically at risk: >/= 60 mL/min Moderately decreased: 30-59 Severely decreased: 15-29 Renal failure: <15 There is reduced accuracy above 60ml/min/1.73 m squared, but the numeric value may be clinically useful in the near 60 range Glomerular Filtration Rate (GFR) is estimated based on the CKD-EPI equation, which assumes a steady state for creatinine as recommended by the National Kidney Disease Education Program in conjunction with the National Institutes of Health and the National Kidney Foundation. Clinical conditions in which it may be necessary to measure GFR by using clearance methods include extremes of age and body size, severe malnutrition or obesity, diseases of skeletal muscle, paraplegia or quadriplegia, vegetarian diet, rapidly changing kidney function, and calculation of the dose of potentially toxic drugs that are excreted by the kidneys. 34 Per NCEP ATP III Guidelines: Results lower than 40 mg/dL are suggestive of increased risk for coronary artery disease. Results > or = to 60 mg/dL are considered a negative risk factor. 35 Per NCEP ATP III Guidelines: Normal Population <130 Patients with medical conditions: CHD/DM Optimal: <100 Borderline high: 130-159 High: 160-189 Very high: >189 36 today , preop 37 Per NCEP ATP III Guidelines: Results lower than 40 mg/dL are suggestive of increased risk for coronary artery disease. Results > or = to 60 mg/dL are considered a negative risk factor. 38 Per NCEP ATP III Guidelines: Normal Population <130 Patients with medical conditions: CHD/DM Optimal: <100 Borderline high: 130-159 High: 160-189 Very high: >189 39 Updated reference range on new analyzer 40 Updated reference range on new analyzer 41 Updated reference range 03-26-2019 42 Updated Reference Range 43 Concerning GFR Guidelines for Americans: Normal function or mild renal disease, if clinically at risk: >/= 60 mL/min Moderately decreased: 30-59 Severely decreased: 15-29 Renal failure: <15 There is reduced accuracy above 60ml/min/1.73 m squared, but the numeric value may be clinically useful in the near 60 range 44 Concerning GFR Guidelines: Normal function or mild renal disease, if clinically at risk: >/= 60 mL/min Moderately decreased: 30-59 Severely decreased: 15-29 Renal failure: <15 There is reduced accuracy above 60ml/min/1.73 m squared, but the numeric value may be clinically useful in the near 60 range Glomerular Filtration Rate (GFR) is estimated based on the CKD-EPI equation, which assumes a steady state for creatinine as recommended by the National Kidney Disease Education Program in conjunction with the National Institutes of Health and the National Kidney Foundation. Clinical conditions in which it may be necessary to measure GFR by using clearance methods include extremes of age and body size, severe malnutrition or obesity, diseases of skeletal muscle, paraplegia or quadriplegia, vegetarian diet, rapidly changing kidney function, and calculation of the dose of potentially toxic drugs that are excreted by the kidneys. 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 I50.21 Acute systolic (congestive) heart failure E78.2 Mixed hyperlipidemia I48.0 Paroxysmal atrial fibrillation M10.9 Gout, unspecified D50.9 Iron deficiency anemia, unspecified I11.0 Hypertensive heart disease with heart failure J44.9 Chronic obstructive pulmonary disease, unspecified G47.33 Obstructive sleep apnea (adult) (pediatric) N40.1 Benign prostatic hyperplasia with lower urinary tract symp K21.9 Gastro-esophageal reflux disease without esophagitis Z87.891 Personal history of nicotine dependence I44.7 LEFT bundle-branch block, unspecified M25.562 Pain in LEFT knee E66.01 Morbid (severe) obesity due to excess calories N17.8 Other acute kidney failure Z68.42 Body mass index (BMI) 45.0-49.9, adult Office Visit 05/27/2019 1:15p [facility] Carrol Powell MD E78.2 Mixed hyperlipidemia D64.9 Anemia, unspecified N17.8 Other acute kidney failure I48.0 Paroxysmal atrial fibrillation I50.21 Acute systolic (congestive) heart failure E66.01 Morbid (severe) obesity due to excess calories Z68.42 Body mass index (BMI) 45.0-49.9, adult Office Visit 05/09/2019 4:15p [facility] Carrol Powell MD D50.9 Iron deficiency anemia, unspecified M17.12 Unilateral primary osteoarthritis, LEFT knee R19.5 Other fecal abnormalities E53.9 Vitamin B deficiency, unspecified E66.01 Morbid (severe) obesity due to excess calories Z68.42 Body mass index (BMI) 45.0-49.9, adult Office Visit 04/30/2019 2:00p [facility] Carrol Powell MD M17.12 Unilateral primary osteoarthritis, LEFT knee Z01.818 Encounter for other preprocedural examination D64.9 Anemia, unspecified I11.0 Hypertensive heart disease with heart failure I48.0 Paroxysmal atrial fibrillation J44.9 Chronic obstructive pulmonary disease, unspecified G47.33 Obstructive sleep apnea (adult) (pediatric) N40.1 Benign prostatic hyperplasia with lower urinary tract symp M10.9 Gout, unspecified E11.21 Type 2 diabetes mellitus with diabetic nephropathy K21.9 Gastro-esophageal reflux disease without esophagitis Z87.891 Personal history of nicotine dependence F39 Unspecified mood [affective] disorder D49.59 Neoplasm of unspecified behavior of other organ E78.2 Mixed hyperlipidemia Z86.010 Personal history of colonic polyps I44.7 LEFT bundle-branch block, unspecified E66.01 Morbid (severe) obesity due to excess calories R01.1 Cardiac murmur, unspecified I50.9 Heart failure, unspecified D50.9 Iron deficiency anemia, unspecified Z68.42 Body mass index (BMI) 45.0-49.9, adult Assessments Date Code Description Provider 09/23/2019 M17.12 Unilateral primary osteoarthritis, LEFT knee Carrol Powell MD 09/23/2019 Z01.818 Encounter for other preprocedural examination Carrol Powell MD 09/23/2019 I48.0 Paroxysmal atrial fibrillation Carrol Powell MD 09/23/2019 I50.9 Heart failure, unspecified Carrol Powell MD 09/23/2019 E11.21 Type 2 diabetes mellitus with diabetic Carrol Powell MD nephropathy 09/23/2019 D50.9 Iron deficiency anemia, unspecified Carrol Powell MD 09/23/2019 E78.2 Mixed hyperlipidemia Carrol Powell MD 09/23/2019 M10.9 Gout, unspecified Carrol Powell MD 09/23/2019 J44.9 Chronic obstructive pulmonary disease, Carrol Powell MD unspecified 09/23/2019 I11.0 Hypertensive heart disease with heart failure Carrol Powell MD 09/23/2019 G47.33 Obstructive sleep apnea (adult) (pediatric) Carrol Powell MD 09/23/2019 N40.1 Benign prostatic hyperplasia with lower Carrol Powell MD urinary tract sympto 09/23/2019 K21.9 Gastro-esophageal reflux disease without Carrol Powell MD esophagitis 09/23/2019 Z87.891 Personal history of nicotine dependence Carrol Powell MD 09/23/2019 I44.7 LEFT bundle-branch block, unspecified Carrol Powell MD 09/23/2019 E66.01 Morbid (severe) obesity due to excess Carrol Powell MD calories 09/23/2019 Z96.641 Presence of RIGHT artificial hip joint Carrol Powell MD 09/23/2019 H91.93 Unspecified hearing loss, bilateral Carrol Powell MD 09/23/2019 N18.3 Chronic kidney disease, stage 3 (moderate) Carrol Powell MD 09/23/2019 Z68.42 Body mass index (BMI) 45.0-49.9, adult Carrol Powell MD 09/15/2019 D50.9 Iron deficiency anemia, unspecified Carrol Powell MD 09/15/2019 D50.9 Iron deficiency anemia, unspecified Schedule, Laboratory 09/15/2019 E78.2 Mixed hyperlipidemia Carrol Powell MD 09/15/2019 E78.2 Mixed hyperlipidemia Schedule, Laboratory 09/15/2019 M10.9 Gout, unspecified Carrol Powell MD 09/15/2019 M10.9 Gout, unspecified Schedule, Laboratory 09/15/2019 E11.21 Type 2 diabetes mellitus with diabetic Schedule, Laboratory nephropathy 09/15/2019 D50.9 Iron deficiency anemia, unspecified [facility] 09/15/2019 E78.2 Mixed hyperlipidemia [facility] 09/15/2019 M10.9 Gout, unspecified [facility] 09/15/2019 E11.21 Type 2 diabetes mellitus with diabetic [facility] nephropathy 08/01/2019 D50.9 Iron deficiency anemia, unspecified Carrol Powell MD 08/01/2019 D50.9 Iron deficiency anemia, unspecified Schedule, Laboratory 08/01/2019 D50.9 Iron deficiency anemia, unspecified [facility] 07/01/2019 D50.9 Iron deficiency anemia, unspecified Carrol Powell MD 07/01/2019 D50.9 Iron deficiency anemia, unspecified Schedule, Laboratory 07/01/2019 E78.2 Mixed hyperlipidemia Carrol Powell MD 07/01/2019 E78.2 Mixed hyperlipidemia Schedule, Laboratory 07/01/2019 D50.9 Iron deficiency anemia, unspecified [facility] 07/01/2019 E78.2 Mixed hyperlipidemia [facility] 06/30/2019 E11.21 Type 2 diabetes mellitus with diabetic Carrol Powell MD nephropathy 06/30/2019 I50.21 Acute systolic (congestive) heart failure Carrol Powell MD 06/30/2019 E78.2 Mixed hyperlipidemia Carrol Powell MD 06/30/2019 I48.0 Paroxysmal atrial fibrillation Carrol Powell MD 06/30/2019 M10.9 Gout, unspecified Carrol Powell MD 06/30/2019 D50.9 Iron deficiency anemia, unspecified Carrol Powell MD 06/30/2019 I11.0 Hypertensive heart disease with heart failure Carrol Powell MD 06/30/2019 J44.9 Chronic obstructive pulmonary disease, Carrol Powell MD unspecified 06/30/2019 G47.33 Obstructive sleep apnea (adult) (pediatric) Carrol Powell MD 06/30/2019 N40.1 Benign prostatic hyperplasia with lower Carrol Powell MD urinary tract sympto 06/30/2019 K21.9 Gastro-esophageal reflux disease without Carrol Powell MD esophagitis 06/30/2019 Z87.891 Personal history of nicotine dependence Carrol Powell MD 06/30/2019 I44.7 LEFT bundle-branch block, unspecified Carrol Powell MD 06/30/2019 M25.562 Pain in LEFT knee Carrol Powell MD 06/30/2019 E66.01 Morbid (severe) obesity due to excess Carrol Powell MD calories 06/30/2019 N17.8 Other acute kidney failure Carrol Powell MD 06/30/2019 Z68.42 Body mass index (BMI) 45.0-49.9, adult Carrol Powell MD 06/23/2019 N17.8 Other acute kidney failure Carrol Powell MD 06/23/2019 N17.8 Other acute kidney failure Schedule, Laboratory 06/23/2019 I50.21 Acute systolic (congestive) heart failure Carrol Powell MD 06/23/2019 I50.21 Acute systolic (congestive) heart failure Schedule, Laboratory 06/23/2019 E11.21 Type 2 diabetes mellitus with diabetic Carrol Powell MD nephropathy 06/23/2019 E11.21 Type 2 diabetes mellitus with diabetic Schedule, Laboratory nephropathy 06/23/2019 N17.8 Other acute kidney failure [facility] 06/23/2019 I50.21 Acute systolic (congestive) heart failure [facility] 06/23/2019 E11.21 Type 2 diabetes mellitus with diabetic [facility] nephropathy 05/27/2019 E78.2 Mixed hyperlipidemia Carrol Powell MD 05/27/2019 D64.9 Anemia, unspecified Carrol Powell MD 05/27/2019 N17.8 Other acute kidney failure Carrol Powell MD 05/27/2019 I48.0 Paroxysmal atrial fibrillation Carrol Powell MD 05/27/2019 I50.21 Acute systolic (congestive) heart failure Carrol Powell MD 05/27/2019 E66.01 Morbid (severe) obesity due to excess Carrol Powlel MD calories 05/27/2019 Z68.42 Body mass index (BMI) 45.0-49.9, adult Carrol Powell MD 05/21/2019 D64.9 Anemia, unspecified Carrol Powell MD 05/21/2019 D64.9 Anemia, unspecified Schedule, Laboratory 05/21/2019 Z00.01 Encounter for general adult medical Carrol Powell MD examination with abnormal findings 05/21/2019 Z00.01 Encounter for general adult medical exam w Schedule, Laboratory abnormal findings 05/21/2019 I48.0 Paroxysmal atrial fibrillation Carrol Powell MD 05/21/2019 I48.0 Paroxysmal atrial fibrillation Schedule, Laboratory 05/21/2019 E78.2 Mixed hyperlipidemia Carrol Powell MD 05/21/2019 E78.2 Mixed hyperlipidemia Schedule, Laboratory 05/21/2019 M10.9 Gout, unspecified Carrol Powell MD 05/21/2019 M10.9 Gout, unspecified Schedule, Laboratory 05/21/2019 D64.9 Anemia, unspecified [facility] 05/21/2019 Z00.01 Encounter for general adult medical exam w [facility] abnormal findings 05/21/2019 I48.0 Paroxysmal atrial fibrillation [facility] 05/21/2019 E78.2 Mixed hyperlipidemia [facility] 05/21/2019 M10.9 Gout, unspecified [facility] 05/09/2019 D50.9 Iron deficiency anemia, unspecified Carrol Powell MD 05/09/2019 M17.12 Unilateral primary osteoarthritis, LEFT knee Carrol Powell MD 05/09/2019 R19.5 Other fecal abnormalities Carrol Powell MD 05/09/2019 E53.9 Vitamin B deficiency, cheryleified Carrol Powell MD 05/09/2019 E66.01 Morbid (severe) obesity due to excess Carrol Powell MD calories 05/09/2019 Z68.42 Body mass index (BMI) 45.0-49.9, adult Carrol Powell MD 04/30/2019 D64.9 Anemia, unspecified Carrol Powell MD 04/30/2019 M17.12 Unilateral primary osteoarthritis, LEFT knee Carrol Powell MD 04/30/2019 E78.2 Mixed hyperlipidemia Carrol Powell MD 04/30/2019 Z01.818 Encounter for other preprocedural examination Carrol Powell MD 04/30/2019 I48.0 Paroxysmal atrial fibrillation Carrol Powell MD 04/30/2019 D64.9 Anemia, unspecified Carrol Powell MD 04/30/2019 I11.0 Hypertensive heart disease with heart failure Carrol Powell MD 04/30/2019 I48.0 Paroxysmal atrial fibrillation Carrol Powell MD 04/30/2019 J44.9 Chronic obstructive pulmonary disease, Carrol Powell MD unspecified 04/30/2019 G47.33 Obstructive sleep apnea (adult) (pediatric) Carrol Powell MD 04/30/2019 N40.1 Benign prostatic hyperplasia with lower Carrol Powell MD urinary tract sympto 04/30/2019 M10.9 Gout, unspecified Carrol Powell MD 04/30/2019 E11.21 Type 2 diabetes mellitus with diabetic Carrol Powell MD nephropathy 04/30/2019 K21.9 Gastro-esophageal reflux disease without Carrol Powell MD esophagitis 04/30/2019 Z87.891 Personal history of nicotine dependence Carrol Powell MD 04/30/2019 F39 Unspecified mood [affective] disorder Carrol Powell MD 04/30/2019 D49.59 Neoplasm of unspecified behavior of other Carrol Powell MD genitourinary orga 04/30/2019 E78.2 Mixed hyperlipidemia Carrol Powell MD 04/30/2019 Z86.010 Personal history of colonic polyps Carrol Powell MD 04/30/2019 I44.7 LEFT bundle-branch block, unspecified Carrol Powell MD 04/30/2019 E66.01 Morbid (severe) obesity due to excess Carrol Powell MD calories 04/30/2019 R01.1 Cardiac murmur, unspecified Carrol Powell MD 04/30/2019 I50.9 Heart failure, unspecified Carrol Powell MD 04/30/2019 D50.9 Iron deficiency anemia, unspecified Carrol Powell MD 04/30/2019 D64.9 Anemia, unspecified Schedule, Laboratory 04/30/2019 Z68.42 Body mass index (BMI) 45.0-49.9, adult Carrol Powell MD 04/30/2019 E78.2 Mixed hyperlipidemia Schedule, Laboratory 04/30/2019 I48.0 Paroxysmal atrial fibrillation Schedule, Laboratory 04/30/2019 D64.9 Anemia, unspecified [facility] 04/30/2019 E78.2 Mixed hyperlipidemia [facility] 04/30/2019 I48.0 Paroxysmal atrial fibrillation [facility] Plan of Treatment Future Appointment(s):12/24/2019 10:45 am - Carrol Powell MD at [facility]2018 - Carrol Powell, MDM17.12 Unilateral primary osteoarthritis, LEFT kneeComments:for total knee replacement with DR Cunningham. Cautioned the risks with his morbid obesity for quickerbreakdown of replacement. Dr Cunningham is willing to proceedFollow up:call for fu about 1 week after hosp or rehab dc; schedule next visit in 90 days oc15 rtn fuZ01.818 Encounter for other preprocedural examinationComments:By history and exam pt appears medically stable for proposed surgery,. CC faxed to requesting surgeon of this note and labs and ekg. Note, we discussed, given age and comorbidities there are risks withthis surgery. We are working to optimize the risks Cardiology clearance per Dr Michaelcommendations;1. per dr velazquez miss the last 4 doses before surgery, restart as soon as is safe to do after surgery, ideally that evening-- Dr Velazquez to provide final guideance 2. cpap, bring machine and humidity to the hosp and rehab settings. narcotics can worsen sleep apnea, use the lowest needed pain medication, if concerned, do overnight oximetry3. diabetes, no meds , but monitor perioperatively 4. ho chf, monitor fluid status carefully 5. recommend preop dermatology physician due to deconditioning and recommend post op in patient rehab due to comorbidities and preop deconditioning 6. pt is at risk for post op delirium, keep glasses and hearing aids available, monitor for this to develop . 7. BPH, watch fort this to worsen perioperatively. Early Uro consult if has problems 8. he plans rehab center after surgery, his withrecent illness so may need additional supports.I48.0 Paroxysmal atrial fibrillationComments:atrial fibrillation--Rate controlled, sinus rhythm per exam adn ekg continue anticoagulation to help reduce risk of stroke. Please call for chest pain, shortness of breath, palpitations, swelling orexcessive bleeding, or any concerns. continues on eliquis for anticoagulation. monitor for gibleeding. there is increased risk for gi bleeding with aspirin. watch for abd pain, black or bloodystools. management also with Dr Evansussed amiodarone can cause thyroid and lung diseasemonitorfor worsening sob and cough note tsh normal 05/21/19 labsI50.9 Heart failure, unspecifiedComments:episode of chf associated with afib in fall 2017, EF 30%, care with Dr Velazquez. Appears compensated without exacerbation. Please call if you develop increased Shortness of breath at rest/exertion/nighttime, chestpain , swelling, edema, or increase of weight of 5# in a week. You should be evaluated. call for any concerns. Final cardiology clearance per Dr Das11.21 Type 2 diabetes mellitus with diabetic nephropathyComments:no medications for treatmenton no medsmonitor fs perioperatively avoid tight control referral to optho, Dr Sanchezferral:Raciel Cheema MD, ChwhxndehryfhU15.9 Iron deficiency anemia, unspecifiedComments:Iron deficiency anemiah/h , iron 74--appears stable has had gi clearance by DR Bernal. has had giworkupcont pantopraazole 40mgtake iron away from tjhis, with vit c call for dizziness, steady bleeding, new pzfbleiwP59.2 Mixed rigkhyijhmwyooZ79.9 Gout , unspecifiedComments:gout--continue meds, symptoms controlled, check uric acid periodically , last check at 4, cont tpcdsfkeetcF78.9 Chronic obstructive pulmonary disease, unspecifiedNew Medication:Advair Diskus 250-50 mcg/Dose - 1 puff twice a day--Mao Per InsuranceComments:COPD--Appears clinically stable. Continue your medication. Please call for increased cough, sputum production or signs of illness, swelling, chest pain or concerns. rinse mouth aft er use Recommend annual flu shot. Will change to generic advair, cautioned to call if not adequately controlled with change to generic continue current yrdaccrI08.0 Hypertensive heart disease with heart failureComments:last episode chf in 08/2018, doing wellcare per Dr Velazquez Continue current treatment, watch for weight gain, treat with furosemide as noted. Work on weight loss .check daily weight and call if gains more than 5# in 1 weekG47.33 Obstructive sleep apnea (adult) (pediatric)Comments:sleep apnea stable. cont care with Dr Spears continue cpap and oxygenCautioned if not adequatelytreated, low oxygen levels can lead to umbrella mender stroke or heart attack, as well as sleepiness that can lead to motor vehicle and other accidents.bring cpap machine to hosp and rehab with any humidity you have, remind them of need for oxygen cautioned risks for sleep apnea to worsen with narcotic use, use the lowest needed dose of sedating pain medsN40.1 Benign prostatic hyperplasia with lower urinary tract symptoComments:pt with prostate enlargement and urinary obstructive symptoms. continue meds, care with Dr Rojas watch for low bp symptoms such as dizziness over night. If urinary symptoms worsen seek care cautioned risks for this condition to worsen perioperatively, monitor for urine frquency and incomplete criyiwedZ62.9 Gastro-esophageal reflux disease without esophagitisComments:GERD/esophagitis--Symptoms moderately well controlled on current acid akanksha therapy. Reminded pt we need to control the symptoms as those symptoms would be signs of gastric acid eroding on the esophagus, which can lead to complications. Call if has heartburn more than 2 - 3 times per week. Pt should take meds to control any break through symptoms. Please be sure to take your acid akanksha 30minbefore a meal. he continues on protonix 37qlO97.891 Personal history of nicotine dependenceComments:Former smoker, not a candidate for lung cancer screening based on history Seek care for persistent cough, unexpected weight loss/fatigue, coughing up blood as these can be signs of lung sdotzgD05.7 LEFT bundle-branch block, unspecifiedComments: care with Dr Das66.01 Morbid (severe) obesity due to excess caloriesComments :Morbid obesitythis increases your risk for sleep apnea, arthritis, premature cardiovascular disease,etcpt is aware of medication and surgical optionsprefers to continue diet and exercise continue to work on diet, exercise, weight lossZ96.641 Presence of RIGHT artificial hip jointComments:sp hip replacement, care with Jose tpjeqK78.93 Unspecified hearing loss, bilateralComments:Chronic hearing loss, hearing aid use. malissa belcher audioloist be certain to take the aids with you to ggoomsgS91.3 Chronic kidney disease, stage 3 (moderate) Comments:Chronic kidney disease stage 3, moderateRecommend: continue good hydration target 90 oz total fluidsper day. avoid nsaids/ibuprofen/aleve/etc, may take aspirinkeep tight control of blood pressure, goal under 140/90 at all times, best if under 130/80. Keep good control of aumslpzG23.42 Body mass index (BMI) 45.0-49.9, adultComments:continue to work on healthy diet, regular exercise Functional Status Description No Information Available Mental Status Description No Information Available Referrals Refer to Reason for Referral Status Appt Date Raciel Cheema MD over due annual diabetes eye xam , plans knee Created surgery Oct 10 do before? Faxed all necessary paperwork needed for the to review and schedule the pt. KR 09/23 [address] [facility], [address] [place], [place] [id number] [phone] [place] [facility] eval and treat called [facility] Closed to get note- Lawrence said she will let the provider know that we need th note cm 06/03 Malissa Belcher [address] [place] [address] [phone] Sophie Bernal iron deficiency anemia, pt wants to be cleared for Closed knee replacmeent but has new iron defic anemia, known ho polyps. [address] [place] [address] [phone]
--- OUTSIDE RECORDS SUMMARY | 2019-10-10 12:09 | XMS REPORT | Continuity of Care Document ---
:1945 External Reference #:[id number] Author Name Sydney Cunningham M.D. (transmitted by agent of provider Yessenia Kaur) Address [address] [place] [address] Care Team Providers Name Role Phone Carrol Powell MD - Family Care Team Information Production Control Pegboard Clerk [phone] Medicine Problems Active Problems Provider Date Morbid obesity Sydney Cunningham M.D. Onset: 08/29/2019 Localized, primary osteoarthritis Sydney Cunningham M.D. Onset: 08/29/2019 Social History Type Date Description Comments Sex Unknown ETOH Use Denies alcohol use Tobacco Use Start: Unknown Patient has never smoked Smoking Status Reviewed: 09/29/19 Patient has never smoked Exercise Type/Frequency Does not exercise Allergies, Adverse Reactions, Alerts Description No Known Drug Allergies Medications Active Medications SIG Qnty Indications Ordering Date Provider Aspirin 81 1 by mouth every 30tabs Other Ordering 08/29/2019 81mg day Provider Tablets DR Vitamin D2 take 50,000 units 12tabs Other [...] Available Vital Signs Date Vital Result Comment 09/29/2019 1:29pm Height 68 inches 5'8" Weight 318.00 lb Heart Rate 86 /min BP Systolic 134 mmHg BP Diastolic 72 mmHg Body Temperature 97.8 F Pain Level 6 BMI (Body Mass Index) 48.3 kg/m2 08/29/2019 10:34am Height 68 inches 5'8" Weight 317.00 lb Heart Rate 60 /min BP Systolic 136 mmHg BP Diastolic 72 mmHg Body Temperature 97.3 F Pain Level 8 BMI (Body Mass Index) 48.2 kg/m2 Results Description No Information Available Procedures Description No Information Available Medical Devices Description No Information Available Encounters Type Date Location Provider Dx Diagnosis Office Visit 08/29/2019 [facility] Sydney Cunningham, M25.562 Pain in left knee 10:00a at [place] [facility] M25.462 Effusion, left knee M17.12 Unilateral primary osteoarthritis, left knee Z68.42 Body mass index (BMI) 45.0-49.9, adult E66.01 Morbid (severe) obesity due to excess calories Assessments Date Code Description Provider 09/29/2019 M17.12 Unilateral primary osteoarthritis, left knee Sydney Cunningham M.D. 09/29/2019 M25.462 Effusion, left knee Sydney Cunningham M.D. 09/29/2019 M25.562 Pain in left knee Sydney Cunningham M.D. 08/29/2019 M25.562 Pain in left knee Sydney Cunningham M.D. 08/29/2019 M25.462 Effusion, left knee Sydney Cunningham M.D. 08/29/2019 M17.12 Unilateral primary osteoarthritis, left knee Sydney Cunningham M.D. 08/29/2019 Z68.42 Body mass index (BMI) 45.0-49.9, adult Sydney Octavio, M.D. 08/29/2019 E66.01 Morbid (severe) obesity due to excess calories Sydney Cunningham M.D. Plan of Treatment Future Appointment(s):10/27/2019 1:15 pm - Sydney Cunningham M.D. at [facility]10/10/2019 7:30 am - CHITRA Mena at [facility]10/10/2019 7:30 am - ARY Negron at [facility] at [id number]/10/2019 7:30 am - Sydney Cunningham M.D. at [facility] at [facility]09/29/2019 - Sydney Cunningham M.D.M17.12 Unilateral primary osteoarthritis, left kneeFollow up:Follow up: 2 weeks after enlyitwQ17.462 Effusion, left kneeM25.562 Pain in left knee Functional Status Description No Information Available Mental Status Description No Information Available Referrals Description No Information Available
--- OUTSIDE RECORDS SUMMARY | 2019-10-10 12:09 | XMS REPORT | Continuity of Care Document ---
:1945 External Reference #:[id number] Author Name Nelli Tyler NP (transmitted by agent of provider Milka Sparks) Address [address] [place] [address] Problems Description No Information Available Social History [...] by mouth every Unknown day 20mg Tablets DR Lisinopril 1 by mouth every Unknown 5mg day Tablets Eliquis 1 tab by mouth Unknown 5mg Tablets twice a day Furosemide 1 by mouth every Unknown 20mg day Tablets Amiodarone HCL 1 by mouth every Unknown 200mg day Tablets Ferrous Sulfate 1 by mouth 3 times Unknown a day 325(65Fe) mg Tablets DR Vitamin B12 1 by mouth every Unknown 1000mcg day Tablets ER Immunizations Description No Information Available Vital Signs Date Vital Result Comment 08/26/2019 2:31pm Weight 318.00 lb Height 68.75 inches 5'8.75" BMI (Body Mass Index) 47.3 kg/m2 BP Systolic 148 mmHg BP Diastolic 77 mmHg Heart Rate 77 /min O2 % BldC Oximetry 91 % Body Temperature 98.2 F [place] Score 3 Pain Level 0 08/26/2018 10:10am Weight 313.25 lb Height 68.75 inches 5'8.75" BMI (Body Mass Index) 46.6 kg/m2 BP Systolic 156 mmHg BP Diastolic 89 mmHg Heart Rate 80 /min O2 % BldC Oximetry 96 % Body Temperature 98.7 F Miami Score 3 Pain Level 0 Results Description No Information Available Procedures Description No Information Available Medical Devices Description No Information Available Encounters Description No Information Available Assessments Description No Information Available Plan of Treatment No Information Available Functional Status Description No Information Available Mental Status Description No Information Available Referrals Description No Information Available
[2019-10-10] MEDS ORDERED: ceFAZolin 1 GM ADVAN(*) 1 GM ADDV.VIAL IVPB ONE (12:32)
[2019-10-10] MEDS ORDERED: Famotidine IV* 10 MG/ML 2 ML (20 mg) ONE (12:33)
[2019-10-10] MEDS ORDERED: ceFAZolin 2 GM in NS PREMIX(*) 2 GM/100 ML BAG IVPB ONE (12:33)
[2019-10-10] MEDS ORDERED: Propofol* 10 MG/ML 20 ML BTL ONE (13:27)
[2019-10-10] MEDS ORDERED: Dexamethasone IV* 4 MG/ML 1 ML (4 MG) ONE (13:27)
[2019-10-10] MEDS ORDERED: Sodium Chloride 0.9%* 10 ML ONE ×2 (13:27→13:29)
[2019-10-10] MEDS ORDERED: Lidocaine 2% PF * 5 ML VIAL ONE (13:27)
[2019-10-10] MEDS ORDERED: Ondansetron INJ* 2 MG/ML VIAL ONE (13:27)
[2019-10-10] MEDS ORDERED: fentaNYL* 50 MCG/ML 2 ML VIAL (100 MCG VIAL) ONE ×2 (13:28→17:45)
[2019-10-10] MEDS ORDERED: KETAMINE HCL* 50 MG/ML 10 ML VIAL ONE (13:28)
[2019-10-10] MEDS ORDERED: Midazolam* 1 MG/ML 5 ML VIAL (5 MG) ONE (13:28)
[2019-10-10 13:41] LABS: INR 1.13 (0.82-1.09)
[2019-10-10] MEDS ORDERED: ROPIVACAINE 5 MG/ML 30 ML BTL (0.5%) ONE ×2 (13:55→14:45)
[2019-10-10] MEDS ORDERED: fentaNYL* 50 MCG/ML 5 ML VIAL (250 MCG VIAL) ONE (15:42)
[2019-10-10] MEDS ORDERED: Ondansetron ODT TAB* 4 MG PO PRN (16:05)
[2019-10-10] MEDS ORDERED: oxyCODONE TAB* 5 MG TAB PO PRN (16:05)
[2019-10-10] MEDS ORDERED: Cyclobenzaprine TAB* 10 MG PO PRN (16:05)
[2019-10-10] MEDS ORDERED: Magnesium Hydroxide LIQ* 30 ML UDC PO PRN (16:05)
[2019-10-10] MEDS ORDERED: traMADol TAB* 50 MG PO PRN (16:05)
[2019-10-10] MEDS ORDERED: diPHENhydraMINE IV* 50 MG/ML 1 ml VIAL (BENADRYL) IV PRN (16:05)
[2019-10-10] MEDS ORDERED: Ondansetron INJ* 2 MG/ML VIAL IV PRN ×2 (16:05→17:02)
[2019-10-10] MEDS ORDERED: Ondansetron TAB* 4 MG PO PRN (16:05)
[2019-10-10] MEDS ORDERED: diPHENhydraMINE PO* 25 MG PO PRN (16:05)
[2019-10-10] MEDS ORDERED: Polyethylene Glycol 3350* 17 GM PACKET PO PRN (16:05)
[2019-10-10] MEDS ORDERED: Morphine INJ* 2 MG/ML 1 ML SYRINGE (TWO MG - NEW SYRINGE VERSION) IV PRN (16:05)
[2019-10-10] MEDS ORDERED: Naloxone* 0.4 MG/ML 1 ML VIAL IV PRN (17:02)
[2019-10-10] MEDS ORDERED: Ketorolac INJ* 30 MG/ML 1 ML VIAL ONE (17:09)
[2019-10-10] MEDS ORDERED: HYDROmorphone INJ1* 1 MG/ML SYRINGE ONE (17:30)
--- NOTE | 2019-10-10 17:40 | OP ---
Operative Report - Blank - Operative Report Date of Operation: 10/10/19 Note: JUAN VAUGHN 1945 Date of Surgery: 10/10/19 Sydney Cunningham MD Pediatrician Active Practice: Woody MCALLISTER did help throughout the procedure with preparation of the knee, wound retraction, manipulation of the knee, and wound closure. Anesthesiologist: Malou Pastor MD Anesthesia Type: Gen Preoperative Diagnosis: Left severe degenerative osteoarthritis of the knee Postoperative Diagnosis: As above Procedure Performed: Left Total Knee Arthroplasty Tourniquet time: 60 minutes Complications: None Specimen: Bone and cartilage from the left knee joint sent to pathology. Hardware Used: Cemented [employer]ger [employer] Nephew total knee hardware was used - For the femur a size 7 left legion posterior stabilized femoral component, for the tibia a size 5 left krysten II tibial baseplate, for the insert a size 11mm 5-6 posterior stabilized articular polyethylene insert, and for the patella a size 35 3-peg all poly patella. Brief History/Indication: JUAN VAUGHN was known in clinic and had a history of severe left knee pain and swelling. He failed conservative treatment with anti-inflammatories, pain pills, intra-articular injections and physical therapy. He elected to undergo left total knee arthroplasty due to continued pain and decreased quality of life. Radiographs showed severe end stage osteoarthritis of the knee with bone on bone contact. Informed consent was obtained from the patient. He understood the risks of surgery included but were not limited to: bleeding, infection, damage to nearby structures, intraoperative fracture, nerve palsy, failure of the hardware, early loosening, knee stiffness or loss of motion, anesthesia complications, stroke, heart attack , blood clot and . He wished to proceed. Intra-Operative Findings: Intraoperatively the patient was noted to have severe loss of cartilage in all 3 compartments of the knee. Description of the Procedure: JUAN VAUGHN was identified in the preanesthesia unit. His left knee was marked as the correct operative side. Informed consent was signed and placed in the chart. The patient was taken to the operating room and placed under anesthesia without complication. A addison catheter was placed. A tourniquet was placed on the left thigh. The left lower extremity was prepped and draped in the usual sterile fashion. Preoperative time-out was made to correctly identify the patient, side and site. Appropriate intraoperative antibiotics were given within one hour of incision. Tourniquet was inflated. A midline incision was made and carried sharply down to the extensor mechanism. A new 10 blade was used to make a standard medial parapatellar arthrotomy. The patella was subluxed laterally. Electrocautery was used to dissect soft tissue off the superomedial tibia to the midsagittal plane. The knee was flexed up. The anterior horn of the lateral meniscus and the ACL were sharply incised. A drill was used to enter the distal femur. The intramedullary distal femoral cutting guide was pinned on the distal femur. The oscillating saw was used to make the distal femoral cut. The external rotation guide was pinned on the distal femur and the distal femur was sized to a size 7. The size 7 multi-cutting jig was pinned on the distal femur. The oscillating saw was used to make the appropriate 4 chamfer cuts. Next the PCL was completely released. The extramedullary tibial cutting guide was pinned on the proximal tibia and the oscillating saw was used to make the proximal tibial cut perpendicular to the mechanical axis of the tibia. The bone was carefully removed. The knee was brought out into full extension. The spacer block was placed and had excellent fit with the knee in full extension. The medial and lateral ligaments were well balanced. The flexion and extension gaps were well balanced. The knee was flexed up. Lamina lead programmer analyst was placed both medially and laterally. Any remaining meniscus was removed with electrocautery. Curved osteotome was used to remove any posterior osteophytes. The tibial tray and drop harleen were placed and confirmed a satisfactory tibial cut. The size 7 left femoral trial was impacted onto the distal femur. This trial had excellent fit and stability. The box for the posterior stabilized implant was prepared using a box cut osteotome and a reamer. Next a tibial tray trial and 9 mm insert trial was placed. The knee was taken through a range of motion and had full extension to 130 degrees of flexion. Patellofemoral tracking was satisfactory. The patella was inverted and sized to a size 35. Three peg holes were drilled through the size 35 drill guide. The trial patella was placed and the knee was taken through a range of motion. There was satisfactory patellofemoral tracking. All trials were removed. The tibia was subluxed anteriorly and sized to a size 5. The proximal tibial was prepared with a size 5 keel punch. All bony cut surfaces were irrigated with sterile saline and dried. Final implants were cemented into place starting with the tibia, followed by the femur, and last the patella. A 9 mm insert trial was placed and the knee was brought into full extension. Tourniquet was turned down and the knee was copiously irrigated with sterile saline. Electrocautery was used to obtain meticulous hemostasis. Once the cement had fully cured, the insert trial was removed. Any excess cement was removed from around the hardware and capsule. Final insert chosen was a 11 mm posterior stabilized Krysten II articular insert size 5-6. Stability of the insert was checked and noted to be stable. The extensor mechanism was closed using number 1 vicryls. The rest of the incision was closed in a layered fashion using 0 and 2-0 vicryls. The skin was closed using 3-0 nylon suture. Sterile xeroform, 4x4s and webril were used to cover the incision. Jose wrap and cold pack were used to cover the dressings. The patients anesthesia was reversed without difficulty. He was taken to the PACU in stable condition. Intended weight-bearing will be as tolerated.
[2019-10-10] MEDS: fentaNYL* 50 MCG/ML 2 ML VIAL (100 MCG VIAL) IV PRN ×2 (17:50→18:06)
[2019-10-10] MEDS ORDERED: Dextrose 50% VIAL 50 ml IV PUSH PRN (17:58)
--- NOTE | 2019-10-10 19:12 | CONS ---
MEDICAL CONSULTATION REPORT: DATE OF CONSULT: 10/10/19 HISTORY OF PRESENT ILLNESS: This 74-year-old man was admitted by Dr. Cunningham for elective left total knee arthroplasty. This has been performed. I have seen the patient in the PACU. There were no complications. No excessive bleeding. The patient had general anesthesia with nerve block. He received 50 mcg of fentanyl in the recovery area. PAST MEDICAL HISTORY: The patient has diabetes controlled by diet, hypertension , hyperlipidemia, sleep apnea, atrial fibrillation, GERD, chronic kidney disease , COPD, sleep apnea, and morbid obesity. PAST SURGICAL HISTORY: Appendectomy, vasectomy, right total hip arthroplasty, cataract surgery. CURRENT MEDICATIONS: 1. Rosuvastatin 10 mg daily. 2. Furosemide 20 mg daily. 3. Pantoprazole 40 mg daily. 4. Lisinopril 5 mg daily. 5. Amlodipine 200 mg daily. 6. Apixaban 5 mg b.i.d. 7. Carvedilol 25 mg b.i.d. 8. Tiotropium capsule daily. 9. Advair unknown strength b.i.d. 10. Iron as directed. 11. Finasteride 5 mg daily. 12. Allopurinol 300 mg daily. 13. Vitamin D as prescribed. ALLERGIES: None known. FAMILY HISTORY: Positive for coronary artery disease and cancer. SOCIAL HISTORY: He lives with his , who is his surrogate decision maker. He does not use alcohol, drugs or tobacco. PHYSICAL EXAM: Blood pressure 172/85, heart rate 71, respirations 10, O2 sat 96% , temperature 96.8, height 5 feet 9 inches, weight 319 pounds, BMI 47.2. He is an obese man, lying quietly on the PACU stretcher. I note his hearing aids were not with him and the staff is trying to locate them. He had appeared to be still mildly sedated and also had difficulty hearing me. Otherwise, he looked comfortable. HEENT was unremarkable. He is normocephalic. No signs of trauma. Pupils equal, round. Neck was supple. Heart was regular with a 2/6 systolic murmur in the left sternal border. Lungs are clear anteriorly. Abdomen was very obese. Soft, nontender. Bowel sounds were diminished. There was trace to 1+ pedal edema bilaterally. IMPRESSION AND RECOMMENDATIONS: The patient's multiple medical problems have been addressed as an outpatient. He has brought in his home CPAP machine to use in the hospital. I have ordered 4 times a day glucose checks with lispro coverage as well as a consistent carbohydrate heart healthy diet. I have also ordered an EKG to be done as a baseline, as he has multiple risk factors for coronary artery disease. Thank you for allowing us to see your patient in consultation. We will follow him along with you. [id number]/[facility] #: [id number] YAYA
[2019-10-10] MEDS: Lactated Ringers 1000 ML Bag* 1,000 ML IV SCH (19:30)
[2019-10-10] MEDS: Magnesium Hydroxide LIQ* 30 ML UDC PO SCH (21:21)
[2019-10-10] MEDS: oxyCODONE/Acetamin 5/325 MG* TAB PO PRN (21:21)
[2019-10-10] MEDS: Ferrous Sulfate TAB* 325 MG PO SCH (21:22)
[2019-10-10] MEDS: Carvedilol TAB* 25 MG PO SCH (21:22)
[2019-10-10] MEDS: Allopurinol TAB* 300 MG PO SCH (21:22)
[2019-10-10] MEDS: Docusate CAP* 100 MG PO SCH (21:22)
[2019-10-10] MEDS: Finasteride TAB* 5 MG PO SCH (21:22)
[2019-10-10] MEDS: Insulin LISPRO* 1 UNITS UNIT SUBCUT SCH (21:23)
[2019-10-10] MEDS: Atorvastatin* 20 MG TAB PO SCH (21:23)
[2019-10-10] MEDS: Acetaminophen TAB* 325 MG PO SCH (22:53)
[2019-10-10] MEDS ORDERED: ceFAZolin 1 GM ADVAN(*) 1 GM in NS 0.9% 50 ML* 50 ML IVPB SCH (23:00)
[2019-10-10] MEDS: Mometasone/Formoter 200/5 MDI INH SCH (23:48)
[2019-10-11] MEDS: Acetaminophen TAB* 325 MG PO SCH ×3 (04:47→20:18)
[2019-10-11] MEDS: oxyCODONE/Acetamin 5/325 MG* TAB PO PRN ×4 (06:08→22:01)
[2019-10-11] MEDS: Lactated Ringers 1000 ML Bag* 1,000 ML IV SCH (06:09)
[2019-10-11 06:16] LABS: Hematocrit 37 % (42-52); Hemoglobin 12.5 g/dL (14.0-18.0); Mean Platelet Volume 8.7 fL (7.4-10.4); Platelet Count 127 10^3/uL (150-450)
[2019-10-11 06:38] LABS: BUN/Creatinine Ratio 29.2 (8-20); Calcium 8.4 mg/dL (8.6-10.3); EGFR African American 82.9 (>60); EGFR Non-African American 68.5 (>60)
[2019-10-11 06:40] LABS: Potassium 5.4 mmol/L (3.5-5.0)
[2019-10-11] MEDS: ceFAZolin 1 GM ADVAN(*) 1 GM in NS 0.9% 50 ML* 50 ML IVPB SCH ×2 (08:34→15:22)
[2019-10-11] MEDS: Mometasone/Formoter 200/5 MDI INH SCH ×2 (08:35→19:37)
[2019-10-11] MEDS: SPIRIVA Respimat* (tiotropium) 2.5 mcg/inh Inhaler INH SCH (08:35)
[2019-10-11] MEDS: Insulin LISPRO* 1 UNITS UNIT SUBCUT SCH ×4 (08:36→20:13)
[2019-10-11] MEDS: Docusate CAP* 100 MG PO SCH ×2 (08:48→20:15)
[2019-10-11] MEDS: Amiodarone TAB* 200 MG PO SCH (08:48)
[2019-10-11] MEDS: Carvedilol TAB* 25 MG PO SCH ×2 (08:48→20:15)
[2019-10-11] MEDS: Magnesium Hydroxide LIQ* 30 ML UDC PO SCH ×2 (08:49→20:15)
[2019-10-11] MEDS: Pantoprazole TAB * 40 MG TAB PO SCH (08:49)
[2019-10-11] MEDS: Apixaban* 5 MG TAB PO SCH ×2 (08:49→20:15)
[2019-10-11] MEDS: Furosemide TAB* 20 MG PO SCH (08:49)
[2019-10-11] MEDS: Vitamin THERAPEUTIC TAB PO SCH (08:49)
[2019-10-11] MEDS ORDERED: Lisinopril TAB* 5 MG PO SCH (09:00)
--- NOTE | 2019-10-11 10:29 | PN ---
Subjective Date of Service: 10/11/19 Interval History: Adequate pain control. No new c/o. Objective Active Medications: Acetaminophen (Tylenol Tab*) 975 mg PO Q8HR [facility] Last Admin: 10/11/19 04:47 Dose: Not Given Allopurinol (Zyloprim Tab*) 300 mg PO QPM [facility] Last Admin: 10/10/19 21:22 Dose: 300 mg Amiodarone HCl (Cordarone Tab*) 200 mg PO QAM [facility] Last Admin: 10/11/19 08:48 Dose: 200 mg Apixaban (Eliquis*) 5 mg PO BID [facility] Last Admin: 10/11/19 08:49 Dose: 5 mg Atorvastatin Calcium (Lipitor*) 20 mg PO QPM [facility]; Protocol Last Admin: 10/10/19 21:23 Dose: 20 mg Bisacodyl (Dulcolax Supp*) 10 mg MS DAILY PRN PRN Reason: CONSTIPATION Carvedilol (Coreg Tab*) 25 mg PO BID [facility] Last Admin: 10/11/19 08:48 Dose: 25 mg Cyclobenzaprine HCl (Flexeril Tab*) 10 mg PO Q6H PRN PRN Reason: SPASMS Dextrose (Dextrose 50% Vial 50 Ml*) 25 ml IV PUSH .FOR FS < 60 - SS PRN PRN Reason: FS < 60 Diphenhydramine HCl (Benadryl Iv*) 25 mg IV Q6H PRN PRN Reason: PRURITIS Diphenhydramine HCl (Benadryl Po*) 25 mg PO Q6H PRN PRN Reason: PRURITIS Docusate Sodium (Colace Cap*) 100 mg PO BID [facility] Last Admin: 10/11/19 08:48 Dose: 100 mg Ferrous Sulfate (Ferrous Sulfate Tab*) 325 mg PO QPM [facility] Last Admin: 10/10/19 21:22 Dose: 325 mg Finasteride (Proscar Tab*) 5 mg PO QPM [facility] Last Admin: 10/10/19 21:22 Dose: 5 mg Furosemide (Lasix Tab*) 20 mg PO QAM [facility] Last Admin: 10/11/19 08:49 Dose: 20 mg Lactated Ringer's (Lactated Ringers 1000 Ml Bag*) 1,000 mls @ 100 mls/hr IV PER RATE [facility] Last Admin: 10/11/19 06:09 Dose: 100 mls/hr Cefazolin Sodium 1 gm/ Sodium (Chloride) 50 mls @ 200 mls/hr IVPB Q8H [facility] Stop: 10/11/19 16:14 Last Admin: 10/11/19 08:34 Dose: 200 mls/hr Insulin Human Lispro (Humalog*) 0 units SUBCUT ACHS [facility]; Protocol Last Admin: 10/11/19 08:36 Dose: 2 unit Lactulose (Lactulose*) 30 ml PO BID PRN PRN Reason: CONSTIPATION Magnesium Hydroxide (Milk Of Magnesia Liq*) 30 ml PO BID [facility] Last Admin: 10/11/19 08:49 Dose: 30 ml Magnesium Hydroxide (Milk Of Magnesia Liq*) 30 ml PO Q6H PRN PRN Reason: CONSTIPATION Mometasone Furoate/Formoterol Fumar (Dulera 200/5 Mdi*) 2 puff INH BID [facility] Last Admin: 10/11/19 08:35 Dose: 2 puff Morphine Sulfate (Morphine Inj (Syringe))*) 2 mg IV Q4H PRN PRN Reason: Pain - Unrelieved Multivitamins (Theragran Tab*) 1 tab PO DAILY [facility] Last Admin: 10/11/19 08:49 Dose: 1 tab Ondansetron HCl (Zofran Inj*) 4 mg IV Q6H PRN PRN Reason: NAUSEA Ondansetron HCl (Zofran Odt Tab*) 4 mg PO Q6H PRN PRN Reason: NAUSEA Ondansetron HCl (Zofran Tab*) 4 mg PO Q6H PRN PRN Reason: NAUSEA Oxycodone HCl (Roxycodone Tab*) 10 mg PO Q4H PRN PRN Reason: Pain - Breakthrough Oxycodone/Acetaminophen (Percocet 5/325 Tab*) 2 tab PO Q4H PRN PRN Reason: PAIN - SEVERE Last Admin: 10/11/19 06:08 Dose: 2 tab Pantoprazole Sodium (Protonix Tab*) 40 mg PO QAM [facility] Last Admin: 10/11/19 08:49 Dose: 40 mg Polyethylene Glycol/Electrolytes (Miralax*) 17 gm PO DAILY PRN PRN Reason: Constipation Tiotropium [place] (Spiriva Respimat 2.5 Mcg) 2 puff INH QAM [facility] Last Admin: 10/11/19 08:35 Dose: 2 puff Tramadol HCl (Ultram*) 50 mg PO Q6H PRN PRN Reason: PAIN - MODERATE Vital Signs - 8 hr 10/11/19 10/11/19 10/11/19 03:34 06:08 08:08 Temperature 97.4 F Pulse Rate 71 Respiratory 17 18 16 Rate Blood Pressure 129/62 (mmHg) O2 Sat by Pulse 93 Oximetry 10/11/19 08:25 Temperature 97.6 F Pulse Rate 74 Respiratory 18 Rate Blood Pressure 137/67 (mmHg) O2 Sat by Pulse 95 Oximetry Oxygen Devices in Use Now: None, CPAP Appearance: Alert, partly up in bed, cooling device on L knee. In good spirits , looks comfortable. Eyes: No Scleral Icterus Neck: NL Appearance and Movements; NL JVP, No Thyroid Enlargement, Masses Cardiovascular: RRR, - - 2/6 systolic murmur LSB Extremities: No Edema, No Clubbing, Cyanosis, - Skin: No Rash or Ulcers, No Nodules or Sclerosis, - Result Diagrams: 10/11/19 05:22 10/11/19 05:22 Assess/Plan/Problems-Billing Assessment: - Patient Problems (1) Diabetes Current Visit: Yes Status: Acute Code(s): E11.9 - TYPE 2 DIABETES MELLITUS WITHOUT COMPLICATIONS SNOMED Code(s): 63646137 Comment: Controlled by diet. Received 2 lispro 10/11 AM. Continue SSI. (2) Hyperkalemia Current Visit: Yes Status: Acute Code(s): E87.5 - HYPERKALEMIA SNOMED Code (s): 60312719 Comment: K+ 5.4 10/11. Stop lisinopril, repeat BMP 10/12. (3) HTN (hypertension) Current Visit: Yes Status: Acute Code(s): I10 - ESSENTIAL (PRIMARY) HYPERTENSION SNOMED Code(s): 13172933 Comment: Continue carvedilol. Lisinopril on hold. (4) Atrial fibrillation Current Visit: Yes Status: Acute Code(s): I48.91 - UNSPECIFIED ATRIAL FIBRILLATION SNOMED Code(s): 53019537 Comment: Continue apixaban, amiodarone, carvedilol.. (5) Heart murmur Current Visit: Yes Status: Acute Code(s): R01.1 - CARDIAC MURMUR, UNSPECIFIED SNOMED Code(s): 70315175 Comment: His PCP was aware of this when preop clearance was given. Needs outpt fup. (6) Hyperlipidemia Current Visit: Yes Status: Acute Code(s): E78.5 - HYPERLIPIDEMIA, UNSPECIFIED SNOMED Code(s): 87790175 Comment: Continue statin. (7) GERD (gastroesophageal reflux disease) Current Visit: Yes Status: Acute Code(s): K21.9 - GASTRO-ESOPHAGEAL REFLUX DISEASE WITHOUT ESOPHAGITIS SNOMED Code(s): 015253718 Comment: Continue pantoprazole. (8) Sleep apnea Current Visit: Yes Status: Acute Code(s): G47.30 - SLEEP APNEA, UNSPECIFIED SNOMED Code(s): 37645582 Comment: Patient brought in his CPAP from home, uses it with 2 L O2, uses it for naps also. (9) Morbid obesity Current Visit: Yes Status: Acute Code(s): E66.01 - MORBID (SEVERE) OBESITY DUE TO EXCESS CALORIES SNOMED Code(s): 250799192 Comment: BMI 47.2 (10) History of total left knee replacement Current Visit: Yes Status: Acute Code(s): Z96.652 - PRESENCE OF LEFT ARTIFICIAL KNEE JOINT SNOMED Code(s): 0314141012387 Comment: Left TKA 10/10/19. Management per orthopedist.
--- NOTE | 2019-10-11 13:13 | PN ---
Progress Note - Progress Note Date of Service: 10/11/19 SOAP: Subjective: [Patient seen sitting in chair at bedside. States he is doing well, pain controlled currently with medications. He does have a sig hx and will likely need rehab placement. Pt denies CP, f/c, n/v, calf pain. Admits to some dyspnea when getting up and walking but states that is his baseline and has not worsened post-operatively. ] Objective: [General: NAD, A&Ox3. LLE: Dressing left on, POD#1. Calf is soft and nontender. He is able to DF/PF ankle without pain. Able to stand from seated position with walker. Sensation intact to light touch distally. DP pulse 2+] Assessment: [POD#1 s/p left total knee replacement] Plan: [Continue PT/OT Continue pain meds as needed Continue Eliquis 5mg for DVT ppx Waiting placement for rehab ] Vital Signs Temp Pulse Resp BP Pulse Ox 98.6 F 72 16 131/54 95 10/11/19 12:18 10/11/19 12:18 10/11/19 12:45 10/11/19 12:18 10/11/19 12:18 Laboratory Last Values Hgb 12.5 g/dL (14.0-18.0) L 10/11/19 05:22 Hct 37 % (42-52) L 10/11/19 05:22 Plt Count 127 10^3/uL (150-450) L 10/11/19 05:22 MPV 8.7 fL (7.4-10.4) 10/11/19 05:22 INR (Anticoag Therapy) 1.13 (0.82-1.09) H 10/10/19 13:23 Sodium 134 mmol/L (135-145) L 10/11/19 05:22 Potassium 5.4 mmol/L (3.5-5.0) H 10/11/19 05:22 Chloride 102 mmol/L (101-111) 10/11/19 05:22 Carbon Dioxide 28 mmol/L (22-32) 10/11/19 05:22 Anion Gap 4 mmol/L (2-11) 10/11/19 05:22 BUN 31 mg/dL (6-24) H 10/11/19 05:22 Creatinine 1.06 mg/dL (0.67-1.17) 10/11/19 05:22 Est GFR ( Amer) 82.9 (>60) 10/11/19 05:22 Est GFR (Non-Af Amer) 68.5 (>60) 10/11/19 05:22 BUN/Creatinine Ratio 29.2 (8-20) H 10/11/19 05:22 Glucose 134 mg/dL (70-100) H 10/11/19 05:22 POC Glucose (mg/dL) 143 mg/dL (70-100) H 10/11/19 11:37 Calcium 8.4 mg/dL (8.6-10.3) L 10/11/19 05:22
[2019-10-11] MEDS: Allopurinol TAB* 300 MG PO SCH (17:59)
[2019-10-11] MEDS: Finasteride TAB* 5 MG PO SCH (17:59)
[2019-10-11] MEDS: Atorvastatin* 20 MG TAB PO SCH (17:59)
[2019-10-11] MEDS: Ferrous Sulfate TAB* 325 MG PO SCH (18:00)
[2019-10-11] MEDS: Polyethylene Glycol 3350* 17 GM PACKET PO SCH (20:15)
[2019-10-12 05:43] LABS: Hematocrit 33 % (42-52); Hemoglobin 11.3 g/dL (14.0-18.0); Mean Platelet Volume 8.6 fL (7.4-10.4); Platelet Count 125 10^3/uL (150-450)
[2019-10-12 05:57] LABS: BUN/Creatinine Ratio 30.4 (8-20); Calcium 8.2 mg/dL (8.6-10.3); EGFR African American 77.8 (>60); EGFR Non-African American 64.3 (>60); Potassium 4.5 mmol/L (3.5-5.0)
[2019-10-12] MEDS: Acetaminophen TAB* 325 MG PO SCH (06:52)
[2019-10-12] MEDS: Insulin LISPRO* 1 UNITS UNIT SUBCUT SCH ×2 (07:01→11:34)
[2019-10-12] MEDS: Mometasone/Formoter 200/5 MDI INH SCH (07:19)
[2019-10-12] MEDS: SPIRIVA Respimat* (tiotropium) 2.5 mcg/inh Inhaler INH SCH (07:19)
[2019-10-12] MEDS: Pantoprazole TAB * 40 MG TAB PO SCH (08:27)
[2019-10-12] MEDS: Apixaban* 5 MG TAB PO SCH (08:27)
[2019-10-12] MEDS: Magnesium Hydroxide LIQ* 30 ML UDC PO SCH (08:28)
[2019-10-12] MEDS: Vitamin THERAPEUTIC TAB PO SCH (08:28)
[2019-10-12] MEDS: oxyCODONE/Acetamin 5/325 MG* TAB PO PRN (08:28)
[2019-10-12] MEDS: Carvedilol TAB* 25 MG PO SCH (08:28)
[2019-10-12] MEDS: Furosemide TAB* 20 MG PO SCH (08:28)
[2019-10-12] MEDS: Docusate CAP* 100 MG PO SCH (08:28)
[2019-10-12] MEDS: Amiodarone TAB* 200 MG PO SCH (08:34)
--- NOTE | 2019-10-12 08:47 | PN ---
Progress Note - Progress Note Date of Service: 10/12/19 SOAP: Subjective: [Patient seen OOB in chair. States he feels well. He was more sore after PT yesterday afternoon. Pain well controlled on meds. He denies CP, SOB, f/c, n/v or calf pain. He is awaiting [facility] placement, likely tomorrow. He would prefer [place].] Objective: [Gen: NAD, A&Ox3 LLE: Dressing changed, incision C/D/I with mild ecchymosis but no erythema around incision. Calf soft and nontender, no palpable cords. + DF/PF 5/5 strength. NVI distally.] Assessment: [POD#2 s/p L TKA] Plan: [Continue PT/OT Continue pain meds as needed Eliquis 5mg BID for dvt ppx Awaiting [facility] placement Vital Signs Temp Pulse Resp BP Pulse Ox 98.6 F 69 18 126/62 95 10/12/19 07:25 10/12/19 07:25 10/12/19 08:28 10/12/19 07:25 10/12/19 07:25 Laboratory Last Values Hgb 11.3 g/dL (14.0-18.0) L 10/12/19 05:10 Hct 33 % (42-52) L 10/12/19 05:10 Plt Count 125 10^3/uL (150-450) L 10/12/19 05:10 MPV 8.6 fL (7.4-10.4) 10/12/19 05:10 INR (Anticoag Therapy) 1.13 (0.82-1.09) H 10/10/19 13:23 Sodium 131 mmol/L (135-145) L 10/12/19 05:10 Potassium 4.5 mmol/L (3.5-5.0) 10/12/19 05:10 Chloride 97 mmol/L (101-111) L 10/12/19 05:10 Carbon Dioxide 32 mmol/L (22-32) 10/12/19 05:10 Anion Gap 2 mmol/L (2-11) 10/12/19 05:10 BUN 34 mg/dL (6-24) H 10/12/19 05:10 Creatinine 1.12 mg/dL (0.67-1.17) 10/12/19 05:10 Est GFR ( Amer) 77.8 (>60) 10/12/19 05:10 Est GFR (Non-Af Amer) 64.3 (>60) 10/12/19 05:10 BUN/Creatinine Ratio 30.4 (8-20) H 10/12/19 05:10 Glucose 112 mg/dL (70-100) H 10/12/19 05:10 POC Glucose (mg/dL) 111 mg/dL (70-100) H 10/11/19 20:01 Calcium 8.2 mg/dL (8.6-10.3) L 10/12/19 05:10 ]
--- NOTE | 2019-10-12 10:48 | DS ---
Orthopedic Discharge Summary - Discharge Summary Date of Admission:10/10/19 Date of Discharge: 10/12/19 Date of Surgery: 10/10/19 Attending Orthopedic Provider: Dr. Cunningham Pre-operative Diagnosis: Left knee arthritis Operative Procedure: Left TKA Disposition of Patient: [facility] Condition of Patient: stable History: JUAN VAUGHN is a 74 year old M with years of increasingly severe left knee pain. Patient has failed conservative management and has elected to undergo a left total knee replacement Hospital Course: JUAN was admitted to [facility] on 10/10/19. Patient underwent a left knee replacement without complication followed by a brief recovery in PACU and transfer to the Short Stay Surgical Unit in stable condition. Our hospitalist service, physical therapy and occupational therapy also participated in this patients care. Post-op day 1: patient was alert and in no acute distress. Dressing was clean, dry and intact. Operative extremity dorsiflexion and plantarflexion intact, sensation intact to light touch distally , DP2+. Post-op day two: dressing was changed, incision was clean, dry and intact. Patient was deemed to be medically and orthopedically stable for discharge to [facility]. Physical therapy goals were met. Home Medications Medication Instructions Recorded Confirmed Type Allopurinol TAB* [Zyloprim 300 MG 300 mg PO QPM 08/26/15 10/10/19 History TAB*] Carvedilol TAB* [Coreg TAB*] 25 mg PO BID 08/26/15 10/10/19 History Cholecalciferol TAB* [Vitamin D 2,000 units PO QAM 08/26/15 10/10/19 History TAB*] Fluticasone-Salmeterol 250-50* 1 puff INH BID 08/26/15 10/10/19 History [Advair Diskus 250-50*] Pantoprazole Sodium 40 mg PO QAM 08/26/15 10/10/19 History Tiotropium CAPSULE (NF) [Spiriva 1 inh INH QAM 08/26/15 10/10/19 History CAPSULE (NF)] Finasteride TAB* [Proscar TAB*] 5 mg PO QPM 05/08/16 10/10/19 History Acetaminophen [8Hr Arthritis Pain] 2 tab PO BID 09/29/19 10/10/19 History Amiodarone TAB* [Cordarone Tab*] 200 mg PO QAM 09/29/19 10/10/19 History Apixaban* [Eliquis*] 5 mg PO BID 09/29/19 10/10/19 History Cyanocobalamin TAB* [Vitamin B12 1,000 mcg PO QPM 09/29/19 10/10/19 History TAB*] Ferrous Sulfate TAB* 325 mg PO QPM 09/29/19 10/10/19 History Furosemide TAB* [Lasix TAB*] 20 mg PO QAM 09/29/19 10/10/19 History Lisinopril TAB* [Prinivil TAB 5 5 mg PO QAM 09/29/19 10/10/19 History MG*] Rosuvastatin Calcium 10 mg PO QPM 09/29/19 10/10/19 History Acetaminophen TAB* [Tylenol TAB*] 975 mg PO Q8HR tab 10/12/19 Rx Cyclobenzaprine TAB* [Flexeril 10 10 mg PO Q6H PRN tab 10/12/19 Rx MG TAB*] oxyCODONE TAB* [Roxycodone TAB 5 10 mg PO Q4H PRN tab 10/12/19 Rx mg*] oxyCODONE/Acetamin 5/325 MG* 2 tab PO Q4H PRN tab 10/12/19 Rx [Percocet 5/325 TAB*] Discharge Instructions following Orthopedic Surgery: Activity: * Weight Bearing as tolerated * Continue physical therapy and occupational therapy exercises as shown Wound care: * OK to shower on post-op day 3, no bathing, swimming, or submerging wound. * Use gentle soap, pat dry. Cover with gauze, PETER wrap or tape. Call Orthopedic office for: * Increased drainage * Redness * Increased pain * Fever Go to ER with shortness of breath or chest pain. Diet: * Regular diet * Increase fluids and fiber to prevent constipation. * Continue to use stool softeners, call office if no bowel motion within 48 hours. Medications See Home Medication List in your packet for medications that you should take after discharge. DVT Prophylaxis: Eliquis Dosin mg, 1 tab every 12 hours x 30 days Pain Control: Percocet Dosin/325 mg 1-2 tabs by mouth every 4-6 hours as needed for pain. Maximum of 10 tabs per day. Please note that Percocet contains Tylenol (acetaminophen). Maximum daily dose of Tylenol is 4000 mg from all sources. Antibiotics are required prior to any dental work. FOLLOW UP: Follow up with Within 10-14 days, call for appointment Please call our office with any questions or concerns ([phone])
[2019-10-12] MEDS: Polyethylene Glycol 3350* 17 GM PACKET PO SCH (10:54)
[2019-10-12 11:43] VITALS: BP 119/58
[2019-10-12] MEDS ORDERED: Bisacodyl SUPP* 10 MG SUPP PR PRN (16:05)
== END 2019-10-12 12:45 | DRG 470 ==
LOC: AA 12:05 → SSU 16:05
PROVIDERS: ADMIT Orthopaedic Surgery Adult Reconstructive Orthopaedic Surgery; ATTEND Orthopaedic Surgery Adult Reconstructive Orthopaedic Surgery
PROC: 0SRD0J9 Replacement of Left Knee Joint with Synthetic Substitute, Cemented, Open Approach (ICD-10-PCS; principal; 2019-10-10 14:00)
DX: M17.12 Unilateral primary osteoarthritis, left knee (principal); I13.0 Hypertensive heart and chronic kidney disease with heart failure and stage 1 through stage 4 chronic kidney disease, or unspecified chronic kidney disease; I42.5 Other restrictive cardiomyopathy; Z68.42 Body mass index [BMI] 45.0-49.9, adult; K21.9 Gastro-esophageal reflux disease without esophagitis; J44.9 Chronic obstructive pulmonary disease, unspecified; E66.01 Morbid (severe) obesity due to excess calories; Z96.641 Presence of right artificial hip joint; E11.22 Type 2 diabetes mellitus with diabetic chronic kidney disease; G47.33 Obstructive sleep apnea (adult) (pediatric); N40.0 Benign prostatic hyperplasia without lower urinary tract symptoms; M10.9 Gout, unspecified; M25.762 Osteophyte, left knee; E87.5 Hyperkalemia; R01.1 Cardiac murmur, unspecified; R06.00 Dyspnea, unspecified; E78.00 Pure hypercholesterolemia, unspecified; I48.0 Paroxysmal atrial fibrillation; N18.3 Chronic kidney disease, stage 3 (moderate); I50.9 Heart failure, unspecified; I44.7 Left bundle-branch block, unspecified; E55.9 Vitamin D deficiency, unspecified; E78.2 Mixed hyperlipidemia; K52.9 Noninfective gastroenteritis and colitis, unspecified; E11.21 Type 2 diabetes mellitus with diabetic nephropathy; D50.9 Iron deficiency anemia, unspecified; N40.1 Benign prostatic hyperplasia with lower urinary tract symptoms; I35.0 Nonrheumatic aortic (valve) stenosis; Z98.49 Cataract extraction status, unspecified eye; Z87.891 Personal history of nicotine dependence; Z86.010 Personal history of colon polyps; Z79.899 Other long term (current) drug therapy
CPT/HCPCS: 36415; 80048; 85014; 85018; 85049; 85610; 93005; 94640; 94660; A9270-GY; C1776; G8978-GP-CK; G8979-GP-CI; J0690; J1100; J1170; J1885; J2250; J2405; J2704; J2795; J3010; J3535

== ENCOUNTER 2019-10-12 10:41 | Inpatient (IN) | payer MEDICARE, BC ==
[2019-10-12] MEDS ORDERED: Al Hydrox/Mg Hydrox/Simet LIQ* 30 ML UDC PO PRN (11:38)
[2019-10-12] MEDS ORDERED: Magnesium Hydroxide LIQ* 30 ML UDC PO PRN (11:38)
[2019-10-12] MEDS ORDERED: Cyclobenzaprine TAB* 10 MG PO PRN (11:50)
[2019-10-12] MEDS ORDERED: oxyCODONE TAB* 5 MG TAB PO PRN (11:53)
[2019-10-12] MEDS: Acetaminophen TAB* 325 MG PO SCH ×2 (13:23→19:50)
--- NOTE | 2019-10-12 13:53 | HP ---
CC: Dr. Carrol Powell; Dr. Cunningham * REHABILITATION ADMISSION: DATE OF ADMISSION: 10/12/19 PRIMARY CARE PROVIDER: Carrol Powell MD with [facility] [place]. ORTHOPEDIC SURGEON: Dr. Cunningham. REASON FOR ADMISSION: Left total knee replacement. HISTORY OF PRESENT ILLNESS: This is a 74-year-old man with COPD, chronic kidney disease, paroxysmal atrial fibrillation, obstructive sleep apnea, as well as diet- controlled diabetes mellitus, and obesity, who failed conservative management of left knee osteoarthritis and was was admitted by Dr. Cunningham on 10/10/19 for a left total knee replacement. Postoperatively, it was noted that he had some hyperkalemia. His lisinopril was discontinued and his potassium seemed improved. His fingersticks have been stable. He has been noted to have some hyponatremia and acute postoperative anemia as well as thrombocytopenia but it has not required any transfusion. He normally uses Eliquis at home for his paroxysmal atrial fibrillation and this was restarted without incident. He has been noted to have some dyspnea on exertion. He uses CPAP at home with oxygen for his obstructive sleep apnea when he is sleeping at night as well as with napping but does not use the oxygen otherwise during the day. Prior to admission, he ambulated using a quad cane independently. He is independent in activities of daily living. With physical therapy, he has required contact guard assistance for transferring and a minimal amount of assistance for ambulating up to 130 feet using a rolling walker. He has the most difficulty getting his left leg in and out of bed. PAST MEDICAL HISTORY: 1. Diet-controlled diabetes mellitus. 2. Obesity. 3. Hypertension. 4. Hyperlipidemia. 5. Obstructive sleep apnea. 6. Paroxysmal atrial fibrillation. 7. GERD. 8. Chronic kidney disease. 9. COPD. 10. Obesity. 11. Status post appendectomy. 12. Vasectomy. 13. Right total hip replacement.He notes after his right total hip replacement he went to [place] for subacute rehab and was there for 3 weeks, which felt like a [facility] sentence to him. 14. Cataract surgeries. 15. Benign prostatic hypertrophy. MEDICATIONS: 1. Lipitor 20 mg daily, which is substitution for rosuvastatin 10 mg daily. 2. Lasix 20 mg daily. 3. Protonix 40 mg daily. 4. Lisinopril is on hold. 5. Amiodarone 200 mg daily. 6. Apixaban 5 mg b.i.d. 7. Carvedilol 25 mg b.i.d. 8. Tiotropium capsule 1 inhaled daily. 9. Dulera 200/5 two puffs b.i.d., which is substitution for Advair. 10. Ferrous sulfate 325 mg q.p.m. 11. Finasteride 5 mg q.p.m. 12. Allopurinol 300 mg q.p.m. 13. Tylenol scheduled 975 mg q.8 hours. 14. Flexeril 10 mg t.i.d. p.r.n. muscle spasm. 15. Colace 100 mg b.i.d. 16. Milk of magnesia p.r.n. 17. Multivitamin daily. 18. Roxicodone 5 to 10 mg q.4 hours p.r.n. [id number] pain. 19. MiraLAX. ALLERGIES: No known drug allergies. FAMILY HISTORY: Mother, breast cancer. Father, coronary artery disease. He has had brothers with sleep apnea as well as prostate cancer. SOCIAL HISTORY: He lives with his Elda in [place]. If he cannot make decisions for himself, Elda makes decisions for him and her phone number is . No smoking. No alcohol. 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 He is currently not working. His home has 12 steps to enter and then is one level. He is quite sedentary, spends time reading. REVIEW OF SYSTEMS: See history of present illness and past medical history. He has not had a bowel movement since surgery. He has dyspnea on exertion. The remainder of a 13-system review was completed. No significant findings. He does note that his recently had abdominal surgery and is on restrictions herself. PHYSICAL EXAMINATION GENERAL: Well developed, well nourished, overweight. Mental status: He is alert and oriented x3. VITAL SIGNS: Temperature 98.6, pulse 69, respirations 19, oxygenation 95% on room air, blood pressure is 126/62. HEENT: Normocephalic, atraumatic. Oropharynx is clear. Moist mucous membranes. LUNGS: Clear to auscultation bilaterally. HEART: Regular rate and rhythm. ABDOMEN: Active bowel sounds. Soft, nontender, nondistended. EXTREMITIES: No clubbing or cyanosis. There is mild edema around his left knee as expected postoperatively. He has 2+ peripheral pulses. MUSCULOSKELETAL: He has functional range of motion of all of his major joints except limited range of motion of his left knee. NEUROLOGICAL: Cranial nerves II through XII intact. Upper and lower extremity motor 5/5 bilaterally with pain limited testing of the left knee. Sensation is intact in all 4 extremities. SKIN: Sutures to the left knee are clean, dry, and intact. There is some bruising sanchez-incisional area. LABORATORY DATA: Today, hemoglobin 11.3, hematocrit 33, platelets 125. Sodium 131, potassium 4.5, BUN 34, creatinine 1.12. His fingersticks have ranged from 111 to 143. IMPRESSION: A 74-year-old man status post left total knee replacement secondary to osteoarthritis. He will be admitted to [facility], so he can return to living independently. PLAN: 1. Left total knee replacement. He will follow up with Dr. Cunningham. His dressing will be changed daily while he still needs a dressing. Continue with pain medications including scheduled Tylenol. He will be seen by Physical Therapy and Occupational Therapy. 2. History of recent hyperkalemia. He is off of his home lisinopril. Monitor his blood pressure to determine if he needs to be restarted as well as follow his electrolyte levels. 3. Diabetes mellitus. Continue with consistent carbohydrate diet. He will have fingersticks daily. No coverage. 4. Hypertension. Continue with carvedilol. His lisinopril is on hold. Monitor his vital signs. 5. Paroxysmal atrial fibrillation. Continue with apixaban, amiodarone, and carvedilol. 6. Hyperlipidemia. Lipitor has been substituted for his home rosuvastatin. 7. DVT prophylaxis. Apixaban. 8. Thrombocytopenia. This appears chronic. Follow his CBC regularly. 9. Hyponatremia. Repeat labs tomorrow. He might need adjustment to his Lasix. 10. Gastroesophageal reflux disease. Continue pantoprazole. 11. Obstructive sleep apnea. He has his home CPAP available. This is used for oxygen for sleeping at night as well as naps. 12. Acute postoperative anemia. Monitor CBC. 13. Constipation. His bowels will be regulated. 14. Advance directives: He is a full code. If he cannot make decisions for himself, his Elda makes decisions for him, her number is [phone]. ESTIMATED LENGTH OF STAY: One week and then return to home. [id number]/CPS #: [id number] YAYA
[2019-10-12] MEDS: Finasteride TAB* 5 MG PO SCH (18:13)
[2019-10-12] MEDS: Allopurinol TAB* 300 MG PO SCH (18:13)
[2019-10-12] MEDS: Ferrous Sulfate TAB* 325 MG PO SCH (18:13)
[2019-10-12] MEDS: oxyCODONE TAB* 5 MG TAB PO PRN (18:22)
[2019-10-12] MEDS: Apixaban* 5 MG TAB PO SCH (20:13)
[2019-10-12] MEDS: Carvedilol TAB* 25 MG PO SCH (20:13)
[2019-10-12] MEDS: Atorvastatin* 20 MG TAB PO SCH (20:13)
[2019-10-12] MEDS: Docusate CAP* 100 MG PO SCH (20:13)
[2019-10-12] MEDS: Senna TAB 8.6 mg* TAB PO SCH (20:13)
[2019-10-12] MEDS: Mometasone/Formoter 200/5 MDI INH SCH (22:20)
[2019-10-13] MEDS: oxyCODONE TAB* 5 MG TAB PO PRN ×3 (00:30→13:04)
[2019-10-13 05:49] LABS: ABS Monocytes 0.8 10^3/ul (0-0.8); Eosinophil % 0.2 %; Hematocrit 34 % (42-52); Hemoglobin 11.2 g/dL (14.0-18.0); Lymphocyte % 14.6 %; Mean Corpuscular HGB Conc 33 g/dL (31-36); Mean Corpuscular Hemoglobin 31 pg (27-31); Mean Corpuscular Volume 94 fL (80-94); Platelet Count 132 10^3/uL (150-450); Red Cell Distribution Width 15 % (10-15); White Blood Count 6.8 10^3/uL (3.5-10.8)
[2019-10-13 06:11] LABS: Albumin 3.4 g/dL (3.2-5.2); Albumin/Globulin Ratio 1.2 (1-3); BUN/Creatinine Ratio 30.5 (8-20); Calcium 8.3 mg/dL (8.6-10.3); EGFR African American 73.2 (>60); EGFR Non-African American 60.5 (>60); Globulin 2.9 g/dL (2-4); Potassium 4.6 mmol/L (3.5-5.0); Total Bilirubin 0.5 mg/dL (0.2-1.0); Total Protein 6.3 g/dL (6.4-8.9)
[2019-10-13] MEDS: Acetaminophen TAB* 325 MG PO SCH ×3 (06:13→20:45)
[2019-10-13] MEDS: SPIRIVA Respimat* (tiotropium) 2.5 mcg/inh Inhaler INH SCH (07:34)
[2019-10-13] MEDS: Mometasone/Formoter 200/5 MDI INH SCH ×2 (07:34→20:48)
[2019-10-13] MEDS: Carvedilol TAB* 25 MG PO SCH ×2 (07:35→20:44)
[2019-10-13] MEDS: Apixaban* 5 MG TAB PO SCH ×2 (07:35→20:44)
[2019-10-13] MEDS: Furosemide TAB* 20 MG PO SCH (07:35)
[2019-10-13] MEDS: Multivitamins/Minerals TAB PO SCH (07:35)
[2019-10-13] MEDS: Amiodarone TAB* 200 MG PO SCH (07:35)
[2019-10-13] MEDS: Pantoprazole TAB * 40 MG TAB PO SCH (07:35)
[2019-10-13] MEDS: Docusate CAP* 100 MG PO SCH ×2 (07:35→20:46)
[2019-10-13] MEDS: Polyethylene Glycol 3350* 17 GM PACKET PO SCH (08:48)
[2019-10-13] MEDS: Allopurinol TAB* 300 MG PO SCH (17:40)
[2019-10-13] MEDS: Finasteride TAB* 5 MG PO SCH (17:40)
[2019-10-13] MEDS: Ferrous Sulfate TAB* 325 MG PO SCH (17:40)
--- NOTE | 2019-10-13 19:18 | PN ---
Progress Note Date of Service: 10/13/19 Note: JUAN VAUGHN was visited. Therapy notes read and reviewed. He had a lot of trouble with urinary leakage last night and he says that this happened after a hip surgery several years ago. It has slowed. Normally he is on Proscar at home. He thinks his immobility may be a big part of the problem. Current Medications: Active Medications Generic Name Dose Route Start Last Admin Trade Name Freq PRN Reason Stop Dose Admin Acetaminophen 975 mg 10/12/19 13:00 10/13/19 13:00 Tylenol Tab* PO 975 mg Q8H SHIRA Administration Al Hydrox/Mg Hydrox/Simethicone 30 ml 10/12/19 11:38 Maalox Plus* PO Q6H PRN INDIGESTION Allopurinol 300 mg 10/12/19 18:00 10/13/19 17:40 Zyloprim Tab* PO 300 mg QPM SHIRA Administration Amiodarone HCl 200 mg 10/13/19 09:00 10/13/19 07:35 Cordarone Tab* PO 200 mg DAILY SHIRA Administration Apixaban 5 mg 10/12/19 21:00 10/13/19 07:35 Eliquis* PO 5 mg BID SHIRA Administration Atorvastatin Calcium 20 mg 10/12/19 21:00 10/12/19 20:13 Lipitor* PO 20 mg 2100 SHIRA Administration Bisacodyl 10 mg 10/12/19 11:38 Dulcolax Supp* IN DAILY PRN CONSTIPATION Carvedilol 25 mg 10/12/19 21:00 10/13/19 07:35 Coreg Tab* PO 25 mg BID SHIRA Administration Cyclobenzaprine HCl 10 mg 10/12/19 11:50 Flexeril Tab* PO TID PRN muscle spasm Docusate Sodium 100 mg 10/12/19 21:00 10/13/19 07:35 Colace Cap* PO 100 mg BID SHIRA Administration Ferrous Sulfate 325 mg 10/12/19 18:00 10/13/19 17:40 Ferrous Sulfate Tab* PO 325 mg QPM SHIRA Administration Finasteride 5 mg 10/12/19 18:00 10/13/19 17:40 Proscar Tab* PO 5 mg QPM SHIRA Administration Furosemide 20 mg 10/13/19 09:00 10/13/19 07:35 Lasix Tab* PO 20 mg DAILY SHIRA Administration Magnesium Hydroxide 30 ml 10/12/19 11:38 Milk Of Magnsandra Liq* PO Q6H PRN CONSTIPATION Mometasone Furoate/Formoterol Fumar 2 puff 10/12/19 21:00 10/13/19 07:34 Dulera 200/5 Mdi* INH 2 puff BID SHIRA Administration Multivitamins/Minerals 1 tab 10/13/19 09:00 10/13/19 07:35 Theragran/Minerals Tab* PO 1 tab DAILY SHIRA Administration Oxycodone HCl 5 mg 10/12/19 11:52 10/13/19 13:04 Roxycodone Tab* PO 5 mg Q4H PRN Administration PAIN - MODERATE Oxycodone HCl 10 mg 10/12/19 11:53 Roxycodone Tab* PO Q4H PRN PAIN - SEVERE Pantoprazole Sodium 40 mg 10/13/19 09:00 10/13/19 07:35 Protonix Tab* PO 40 mg DAILY SHIRA Administration Polyethylene Glycol/Electrolytes 17 gm 10/13/19 09:00 10/13/19 08:48 Miralax* PO Not Given DAILY SHIRA Senna 2 tab 10/12/19 21:00 10/12/19 20:13 Senokot 8.6 Mg Tab* PO 2 tab BEDTIME SHIRA Administration Tiotropium [place] 2 puff 10/13/19 09:00 10/13/19 07:34 Spiriva Respimat 2.5 Mcg INH 2 puff DAILY SHIRA Administration Vital Signs: Vital Signs Temp Pulse Resp BP Pulse Ox 98.0 F 78 18 156/71 94 10/13/19 16:00 10/13/19 16:00 10/13/19 16:00 10/13/19 16:00 10/13/19 16:00 Lab Results: Laboratory Results - last 24 hr 10/12/19 10/12/19 10/13/19 17:02 20:10 05:35 WBC 6.8 RBC 3.60 L Hgb 11.2 L Hct 34 L MCV 94 MCH 31 MCHC 33 RDW 15 Plt Count 132 L MPV 8.0 Neut % (Auto) 72.9 Lymph % (Auto) 14.6 Henderson % (Auto) 12.1 Eos % (Auto) 0.2 Baso % (Auto) 0.2 Absolute Neuts (auto) 5.0 Absolute Lymphs (auto) 1.0 Absolute Monos (auto) 0.8 Absolute Eos (auto) 0.0 Absolute Basos (auto) 0.0 Absolute Nucleated RBC 0.0 Nucleated RBC % 0.0 Sodium Potassium Chloride Carbon Dioxide Anion Gap BUN Creatinine Est GFR ( Amer) Est GFR (Non-Af Amer) BUN/Creatinine Ratio Glucose POC Glucose (mg/dL) 79 133 H Calcium Total Bilirubin AST ALT Alkaline Phosphatase Total Protein Albumin Globulin Albumin/Globulin Ratio 10/13/19 10/13/19 10/13/19 05:37 12:09 16:44 WBC RBC Hgb Hct MCV MCH MCHC RDW Plt Count MPV Neut % (Auto) Lymph % (Auto) Henderson % (Auto) Eos % (Auto) Baso % (Auto) Absolute Neuts (auto) Absolute Lymphs (auto) Absolute Monos (auto) Absolute Eos (auto) Absolute Basos (auto) Absolute Nucleated RBC Nucleated RBC % Sodium 132 L Potassium 4.6 Chloride 98 L Carbon Dioxide 29 Anion Gap 5 BUN 36 H Creatinine 1.18 H Est GFR ( Amer) 73.2 Est GFR (Non-Af Amer) 60.5 BUN/Creatinine Ratio 30.5 H Glucose 104 H POC Glucose (mg/dL) 112 H 118 H Calcium 8.3 L Total Bilirubin 0.50 AST 16 ALT 14 Alkaline Phosphatase 60 Total Protein 6.3 L Albumin 3.4 Globulin 2.9 Albumin/Globulin Ratio 1.2 Exam: GENERAL: In no distress LUNGS: Clear bilaterally HEART: Reg rhythm ABDOMEN: Soft, +BS EXTREMITIES: left knee suture line C/D/I. Some erythema proximally NEUROLOGIC: A&O; strength 5/5 except LLE due to pain Assessment/Plan: 1, Left total knee replacement: PT/OT 2. Paroxysmal atrial fibrillation: Eliquis/Amio/Coreg 3. COPD: Dulera/Spiriva 4. Diabetes: Controlled by diet. Fingersticks ok 5. Urinary leakage: On Proscar 6. DVT Prophylaxis: Eliquis 7. Advance Directives: Full code. is surrogate decision maker. 10/13/19 19:38
[2019-10-13] MEDS: Atorvastatin* 20 MG TAB PO SCH (20:44)
[2019-10-13] MEDS: Senna TAB 8.6 mg* TAB PO SCH (20:46)
[2019-10-14] MEDS: Acetaminophen TAB* 325 MG PO SCH ×3 (04:51→19:45)
[2019-10-14] MEDS: Multivitamins/Minerals TAB PO SCH (08:14)
[2019-10-14] MEDS: Pantoprazole TAB * 40 MG TAB PO SCH (08:14)
[2019-10-14] MEDS: Carvedilol TAB* 25 MG PO SCH ×2 (08:14→19:46)
[2019-10-14] MEDS: Mometasone/Formoter 200/5 MDI INH SCH ×2 (08:14→19:46)
[2019-10-14] MEDS: Amiodarone TAB* 200 MG PO SCH (08:15)
[2019-10-14] MEDS: Furosemide TAB* 20 MG PO SCH (08:15)
[2019-10-14] MEDS: SPIRIVA Respimat* (tiotropium) 2.5 mcg/inh Inhaler INH SCH (08:15)
[2019-10-14] MEDS: Docusate CAP* 100 MG PO SCH ×2 (08:15→19:37)
[2019-10-14] MEDS: oxyCODONE TAB* 5 MG TAB PO PRN ×2 (08:15→17:44)
[2019-10-14] MEDS: Apixaban* 5 MG TAB PO SCH ×2 (08:15→19:46)
[2019-10-14] MEDS: Polyethylene Glycol 3350* 17 GM PACKET PO SCH (08:17)
--- NOTE | 2019-10-14 12:34 | PMRUTEAM ---
PMRU: Team Meeting Current Status: Physical Therapy: Current Status Current Rolling Status Supervision/Touching Current Supine <-> Sit Status Partial/Moderate Current Sit <-> Stand Status Supervision/Touching Current Bed <-> Chair Status Supervision/Touching Transfer/Bed Mobility Rolling Walker Recommended Devices Current Picking Up Object Supervision/Touching Status Current Car Transfer Status Supervision/Touching Current Ambulation Assistance Supervision/Touching Status Ambulation Assistive Device Rolling Walker Ambulation Conditions Two or More Turns Current Ambulation Distance 2x125' Current Stair Climbing Status Supervision/Touching Stair Climbing Assistive Left Railing,Right Railing Devices Number of Stairs Climbed 3 Current Curb Assistance Status Supervision/Touching Curb Assistive Devices Rolling Walker Objective Comments L knee flexion: 77 degrees, extension -26 degrees Occupational Therapy: Current Status Current Upper Body Dressing Setup or Clean-up Assist Status Current Lower Body Dressing Supervision/Touching Status Current Footwear Status Setup or Clean-up Assist Current Bathing Status Supervision/Touching Current Grooming Status Setup or Clean-up Assist Current Toileting Status Supervision/Touching Current Toilet Transfer Status Supervision/Touching Current Eating Status Independent Nursing: Current Status Skin Deviations [Bilateral Bruise upper torso] Skin Deviations [Left Knee] Incision Skin Deviations [Left Upper Bruise Medial Thigh] Skin Deviation Description [ cryo unit in place Left Knee] Skin Deviation Description [ reddened, moisturizing cream applied Right Buttocks] Bladder Current Status Incontinent of a lg amt of urine Bowel Current Status Incontinent x1 at times Nutrition Current Status Eats 100% of all meals Medication Current Status Needs reinforcement Rec Therapy: Current Status Summary of Assessment and Recreation Therapy assessment complete and pt. is Clinical Impression aware of services. Pt. was talkative in conversation and open to continued visits along with pet therapy. Treatment Goals Pt. will engage in leisure activities while on the unit. Treatment Plan Provide recreation therapy services and encourage involvement. Nutrition: Current Status Monitoring Pt admitted 10/12 for L total knee. Maintained on consistent carbohydrate diet consuming 100% at meals during stay. Last BM today 10/14. No GI s/sx such as n/v/c/abd pain noted. Labs/meds rev'd. Pt is low nutritional risk. Full nutrition assessment to follow 10/20. Goals: Physical Therapy: Goals Goals to Be Accomplished in ( 5-7 Days) Goal: Rolling Assistance Independent Goal Supine <-> Sit Status Independent Goal Sit <-> Stand Status Independent Goal Bed <-> Chair Status Independent Transfer/Bed Mobility Rolling Walker Recommended Devices Goal: Picking Up Object Independent Goal: Car Transfer Status Setup or Clean-up Assist Goal: Ambulation Assistance Independent Ambulation Assistive Devices Rolling Walker Ambulation Distance (ft) 150 Goal: Wheelchair Propulsion Not Applicable Ability Goal: Stairs Assistance Setup or Clean-up Assist Stairs Recommended Devices Two Rails Number of Stairs 3x5 Goal: Curb Assistance Independent Goal: Home Exercise Program Independent Assistance Occupational Therapy: Goals Goals to be Completed in (Days 5-7 days ) Goal Upper Body Dressing Independent Routine Goal Lower Body Dressing Independent Routine Goal Footwear Status Independent Goal Bathing Routine (OT) Independent Goal Grooming Routine Independent Goal Toilet Hygiene and Independent Clothing Management Routine Goal Toilet Transfer Routine Independent Goal Functional Transfers for Independent ADL Goal Feeding Routine Independent Goal Light Housekeeping Tasks Partial/Moderate Nutrition: Goals Intervention Goals 1. adequate intake to support hydration and lean body mass without significant wt change 2. glycemic control within inpatient parameters; no s/sx hypo-hyperglycemia 3. maintain serum electrolytes WNL 4. regulation of bowel pattern; no c/o constipation (or diarrhea) Nursing: Goals Bladder Goal Independent with toileting Bowel Goal Independent and continent with toileting Nutrition Goal Eats 100% of all meals Medication Goal Independent with medications Care Plan: Care Plan ADL's - Improve/Maintain Start: 10/12/19 19:31 Freq: DAILY@0700,1900 Status: Active Target: 10/19/19 Protocol: Activity Type Activity Date Activity User E-Sign Co-Sign Detail Recorded Client Recorded Date Recorded By Document 10/13/19 14:57 [id number] 10/13/19 14:58 [id number] 10/13/19 14:57 [facility] Outcome: ADL's/ADL Transfers Orders/Interventions Occupational Therapy Evaluation & Treatment Device Yes Address Deficits Secondary To: L TKA Patient to receive OT 5x/wk for 60-120 Therex min/day Self Care Management Group Therapy Neuromuscular ReEducation UE/LE ADL's with Assist Yes: Independent ADL Transfers with Assist Yes: Independent Toileting: Transfers,Clothing Management Yes: ,Hygeine w/Assist Independent Light Kitchen/Laundry w/Assist Yes: Independent Other Outcome/Goals Pt is a 74 y/o male s/p L TKA presenting with limited endurance, decreased strength, increased pain, balance deficits and decreased LLE ROM affecting bathing, toileting, dressing and functional mobility/ transfers. Pt completes his morning ADL routine as reported above. Becomes SOB quickely requiring increased rest breaks. Pt will benefit from skilled OT services in an acute rehabiliation setting to maximize independence and safety with ADL routine. Pt agreeable to OT POC. Progression Toward Outcome/Goals Goal Initiation DVT Prophylaxis- Improve/Maintain Start: 10/12/19 19:31 Freq: DAILY@0700,1900 Status: Active Target: 10/19/19 Protocol: Activity Type Activity Date Activity User E-Sign Co-Sign Detail Recorded Client Recorded Date Recorded By Document 10/14/19 09:12 [id number] [id number] 10/14/19 09:14 [id number] 10/14/19 09:12 PMRU Outcome: DVT Prophylaxis Current DVT Outcome/Goals Remains Free of DVT Progression Toward Outcome/Goals Progressing Discharge Planning - Improve/Maintain Start: 10/12/19 19:31 Freq: DAILY@0700,1900 Status: Active Target: 10/19/19 Protocol: Activity Type Activity Date Activity User E-Sign Co-Sign Detail Recorded Client Recorded Date Recorded By Document 10/14/19 09:12 [id number] [email or web address] 10/14/19 09:14 [id number] 10/14/19 09:12 PMRU Outcome: Discharge Planning Current Discharge Planning Outcome/Goals Demonstrates Understanding of Discharge Plan Progression Toward Outcome/Goals Progressing Education-Improve/Maintain Start: 10/12/19 19:31 Freq: DAILY@0700,1900 Status: Active Target: 10/19/19 Protocol: Activity Type Activity Date Activity User E-Sign Co-Sign Detail Recorded Client Recorded Date Recorded By Document 10/14/19 09:12 [id number] 10/14/19 09:14 [id number] 10/14/19 09:12 PMRU Outcome: Education Current Education Outcome/Goals Demonstrate/ Verbalize Understanding of Written Discharge Instructions Demonstrates Skills Progression Toward Outcome/Goals Progressing Medication Administration Start: 10/12/19 19:31 Freq: DAILY@0700,1900 Status: Active Target: 10/19/19 Protocol: Activity Type Activity Date Activity User E-Sign Co-Sign Detail Recorded Client Recorded Date Recorded By Document 10/14/19 09:12 [id number] [email or web address] 10/14/19 09:14 [id number] 10/14/19 09:12 PMRU Outcome: Medication Administration Assess Patient Knowledge/Teach Med No Education for all Meds Current Floor Molder Outcome/Goals Family/ Caregiver Administer Medications at Home Demonstrates Understanding Progression Towards Outcome/Goals Progressing Is Patient Going Home on Lovenox? No Metabolic Status- Improve/Maintain Start: 10/12/19 19:31 Freq: DAILY@0700,1900 Status: Active Target: 10/19/19 Protocol: Activity Type Activity Date Activity User E-Sign Co-Sign Detail Recorded Client Recorded Date Recorded By Document 10/14/19 09:12 [id number] [id number] 10/14/19 09:14 [id number] 10/14/19 09:12 PMRU Outcome: Metabolic Status Have Fingersticks Been Ordered Yes Fingerstick Order Frequency AC & HS Current Metabolic Status Outcome/Goals Maintain/ Improve Metabolic Status Other Metabolic Status Outcome/Goals no coverage Progression Toward Outcome/Goals Progressing Mobility- Improve/Maintain Start: 10/12/19 19:31 Freq: DAILY@0700,1900 Status: Active Target: 10/19/19 Protocol: Activity Type Activity Date Activity User E-Sign Co-Sign Detail Recorded Client Recorded Date Recorded By Document 10/13/19 16:09 [id number] 10/13/19 16:10 [id number] 10/13/19 16:09 PMRU Outcome: Mobility Physical Therapy Evaluation and Yes Treatment Activity OOB with Assistance Yes WBAT Yes NWB No TTWB No Device Yes Assistance Yes Patient to be seen 5x/wk for 60-120 min/ Therex day for: Mobility Training Gait Training Balance Other Other Therapy Comment family training , discharge planning Current Mobility Outcome/Goals Improve Mobility Status Demonstrates Proper Use of Assistive Devices Progression Toward Outcome/Goals Goal Initiation Bed Mobility Yes: independent Transfers Yes: independent with RW Gait x ft Yes: 150' independent with RW W/C Mobility x ft No Up/Down Stairs Yes: 12 with 1 rail, set-up assistance With HEP Yes: independent Pain/Comfort- Improve/Maintain Start: 10/12/19 19:31 Freq: DAILY@0700,1900 Status: Active Target: 10/19/19 Protocol: Activity Type Activity Date Activity User E-Sign Co-Sign Detail Recorded Client Recorded Date Recorded By Document 10/14/19 09:12 [id number] [id number] 10/14/19 09:14 [id number] 10/14/19 09:12 PMRU Outcome: Pain/Comfort Current Pain/Comfort Outcome/Goals Demonstrates Knowledge and Use of Available Comfort Measures Achieves Acceptable Comfort/Pain Level as Determined by Patient/Condit Maintain Comfort Level Allowing Patient to Fully Participate in Rehab Progression Toward Outcome/Goals Progressing Rec Therapy- Improve/Maintain Start: 10/12/19 19:31 Freq: DAILY@0700,1900 Status: Active Target: 10/19/19 Protocol: Activity Type Activity Date Activity User E-Sign Co-Sign Detail Recorded Client Recorded Date Recorded By Document 10/13/19 16:04 [id number] 10/13/19 16:04 [id number] 10/13/19 16:04 PMRU Outcome: Recreation Therapy Current Rec Ther Outcome/Goals Complete Rec Therapy Assessment Meet with Patient Regularly for Support Encourage Leisure Involvement Progression Toward Outcome/Goals Goal Initiation Respiratory - Improve/Maintain Start: 10/12/19 19:31 Freq: DAILY@699,1899 Status: Active Target: 10/19/19 Protocol: Activity Type Activity Date Activity User E-Sign Co-Sign Detail Recorded Client Recorded Date Recorded By Document 10/14/19 09:12 [id number] [email or web address] 10/14/19 09:14 [id number] 10/14/19 09:12 PMRU Outcome: Respiratory Does Patient Have a Trach No Current Respiratory Outcome/Goals Maintain/ Improve O2 Sat per MD Order Maintain/ Improve Baseline Respiratory Status Maintain/ Improve Activity Tolerance Progression Toward Outcome/Goals Progressing Outcome/Goals Met Comment CPAP overnight Safety- Improve/Maintain Start: 10/12/19 12:50 Freq: DAILY@00,1900 Status: Active Target: 10/19/19 Protocol: Activity Type Activity Date Activity User E-Sign Co-Sign Detail Recorded Client Recorded Date Recorded By Document 10/14/19 09:12 [id number] [email or web address] 10/14/19 09:14 [id number] 10/14/19 09:12 PMRU Outcome: Safety Current Safety Outcome/Goals Remain Free of Injury or Harm Cooperates with Safety Measures for Least Restrictive Environment Progression Toward Outcome/Goals Progressing Skin- Improve/Maintain Start: 10/12/19 19:31 Freq: DAILY@0700,1900 Status: Active Target: 10/19/19 Protocol: Activity Type Activity Date Activity User E-Sign Co-Sign Detail Recorded Client Recorded Date Recorded By Document 10/14/19 09:12 [id number] [email or web address] 10/14/19 09:14 [id number] 10/14/19 09:12 PMRU Outcome: Skin Skin Risk Level No Risk Current Skin Outcome/Goals Maintain/ Improve Skin Integrity Surgical Incisions Healing Progression Toward Outcome/Goals Progressing - Interdisciplinary Staff Present Rolled Oats Mill Operator/Social Work Staff Present: Nanci Pham LMSW Nursing Staff Present: Sabino Epstein LPN OT Staff Present: Karen Rosales PT Staff Present: Alva Solitario Rec Therapy Staff Present: Sandra Yeager HOUSE STEWARD/STEWARDESS Staff Present: Abilio Meyers Medicine Note: Length of Stay: 2 days Anticipated Discharge Destination: Home Tentative Discharge Date: 10/16/19 Discharged to: Home
[2019-10-14] MEDS: Ferrous Sulfate TAB* 325 MG PO SCH (17:41)
[2019-10-14] MEDS: Finasteride TAB* 5 MG PO SCH (17:41)
[2019-10-14] MEDS: Allopurinol TAB* 300 MG PO SCH (17:41)
--- NOTE | 2019-10-14 19:34 | PN ---
Progress Note Date of Service: 10/14/19 Note: JUAN VAUGHN was visited. Therapy notes read and reviewed. He was discussed in interdisciplinary team rounds. He is doing well and his pain is well controlled. Urine leakage improving greatly Current Medications: Active Medications Generic Name Dose Route Start Last Admin Trade Name Freq PRN Reason Stop Dose Admin Acetaminophen 975 mg 10/12/19 13:00 10/14/19 13:05 Tylenol Tab* PO 975 mg Q8H HSIRA Administration Al Hydrox/Mg Hydrox/Simethicone 30 ml 10/12/19 11:38 Maalox Plus* PO Q6H PRN INDIGESTION Allopurinol 300 mg 10/12/19 18:00 10/14/19 17:41 Zyloprim Tab* PO 300 mg QPM SHIRA Administration Amiodarone HCl 200 mg 10/13/19 09:00 10/14/19 08:15 Cordarone Tab* PO 200 mg DAILY SHIRA Administration Apixaban 5 mg 10/12/19 21:00 10/14/19 08:15 Eliquis* PO 5 mg BID SHIRA Administration Atorvastatin Calcium 20 mg 10/12/19 21:00 10/13/19 20:44 Lipitor* PO 20 mg 2100 SHIRA Administration Bisacodyl 10 mg 10/12/19 11:38 Dulcolax Supp* [place] DAILY PRN CONSTIPATION Carvedilol 25 mg 10/12/19 21:00 10/14/19 08:14 Coreg Tab* PO 25 mg BID SHIRA Administration Cyclobenzaprine HCl 10 mg 10/12/19 11:50 Flexeril Tab* PO TID PRN muscle spasm Docusate Sodium 100 mg 10/12/19 21:00 10/14/19 08:15 Colace Cap* PO 100 mg BID SHIRA Administration Ferrous Sulfate 325 mg 10/12/19 18:00 10/14/19 17:41 Ferrous Sulfate Tab* PO 325 mg QPM SHIRA Administration Finasteride 5 mg 10/12/19 18:00 10/14/19 17:41 Proscar Tab* PO 5 mg QPM SHIRA Administration Furosemide 20 mg 10/13/19 09:00 10/14/19 08:15 Lasix Tab* PO 20 mg DAILY SHIRA Administration Magnesium Hydroxide 30 ml 10/12/19 11:38 Milk Of Magnesia Liq* PO Q6H PRN CONSTIPATION Mometasone Furoate/Formoterol Fumar 2 puff 10/12/19 21:00 10/14/19 08:14 Dulera 200/5 Mdi* INH 2 puff BID SHIRA Administration Multivitamins/Minerals 1 tab 10/13/19 09:00 10/14/19 08:14 Theragran/Minerals Tab* PO 1 tab DAILY SHIRA Administration Oxycodone HCl 5 mg 10/12/19 11:52 10/14/19 17:44 Roxycodone Tab* PO 5 mg Q4H PRN Administration PAIN - MODERATE Oxycodone HCl 10 mg 10/12/19 11:53 Roxycodone Tab* PO Q4H PRN PAIN - SEVERE Pantoprazole Sodium 40 mg 10/13/19 09:00 10/14/19 08:14 Protonix Tab* PO 40 mg DAILY SHIRA Administration Polyethylene Glycol/Electrolytes 17 gm 10/13/19 09:00 10/14/19 08:17 Miralax* PO Not Given DAILY SHIRA Senna 2 tab 10/12/19 21:00 10/13/19 20:46 Senokot 8.6 Mg Tab* PO 2 tab BEDTIME SHIRA Administration Tiotropium [place] 2 puff 10/13/19 09:00 10/14/19 08:15 Spiriva Respimat 2.5 Mcg INH 2 puff DAILY SHIRA Administration Vital Signs: Vital Signs Temp Pulse Resp BP Pulse Ox 98.6 F 79 18 154/66 95 10/14/19 17:00 10/14/19 17:00 10/14/19 17:44 10/14/19 17:00 10/14/19 17:00 Lab Results: Laboratory Results - last 24 hr 10/13/19 10/14/19 10/14/19 20:43 07:49 12:53 POC Glucose (mg/dL) 112 H 114 H 150 H 10/14/19 16:22 POC Glucose (mg/dL) 129 H Exam: GENERAL: In no distress LUNGS: Clear bilaterally HEART: Reg rhythm ABDOMEN: Soft, +BS EXTREMITIES: left knee suture line C/D/I. Some ecchymoses proximally NEUROLOGIC: A&O; strength 5/5 except LLE due to pain Assessment/Plan: 1, Left total knee replacement: PT/OT 2. Paroxysmal atrial fibrillation: Eliquis/Amio/Coreg 3. COPD: Dulera/Spiriva 4. Diabetes: Controlled by diet. Fingersticks ok 5. Urinary leakage: On Proscar, improving 6. DVT Prophylaxis: Eliquis 7. Advance Directives: Full code. is surrogate decision maker. 10/14/19 19:35
[2019-10-14] MEDS: Senna TAB 8.6 mg* TAB PO SCH (19:37)
[2019-10-14] MEDS: Atorvastatin* 20 MG TAB PO SCH (19:46)
[2019-10-15] MEDS: Acetaminophen TAB* 325 MG PO SCH ×3 (04:31→19:49)
[2019-10-15] MEDS: SPIRIVA Respimat* (tiotropium) 2.5 mcg/inh Inhaler INH SCH (07:46)
[2019-10-15] MEDS: Mometasone/Formoter 200/5 MDI INH SCH ×2 (07:46→19:51)
[2019-10-15] MEDS: Multivitamins/Minerals TAB PO SCH (08:33)
[2019-10-15] MEDS: Polyethylene Glycol 3350* 17 GM PACKET PO SCH ×2 (08:33→08:41)
[2019-10-15] MEDS: Furosemide TAB* 20 MG PO SCH (08:33)
[2019-10-15] MEDS: Apixaban* 5 MG TAB PO SCH ×2 (08:34→19:48)
[2019-10-15] MEDS: Amiodarone TAB* 200 MG PO SCH (08:35)
[2019-10-15] MEDS: Pantoprazole TAB * 40 MG TAB PO SCH (08:35)
[2019-10-15] MEDS: oxyCODONE TAB* 5 MG TAB PO PRN (08:36)
[2019-10-15] MEDS: Docusate CAP* 100 MG PO SCH ×2 (08:39→19:51)
[2019-10-15] MEDS: Carvedilol TAB* 25 MG PO SCH ×2 (08:41→19:48)
[2019-10-15] MEDS: Finasteride TAB* 5 MG PO SCH (17:21)
[2019-10-15] MEDS: Allopurinol TAB* 300 MG PO SCH (17:21)
[2019-10-15] MEDS: Ferrous Sulfate TAB* 325 MG PO SCH (17:21)
--- NOTE | 2019-10-15 18:53 | PN ---
Progress Note Date of Service: 10/15/19 Note: JUAN VAUGHN was visited. Therapy notes read and reviewed. He seems to be doing well and will go hoome tomorrow. I ordered a small amount of oxycodone for him to go home with. Current Medications: Active Medications Generic Name Dose Route Start Last Admin Trade Name Freq PRN Reason Stop Dose Admin Acetaminophen 975 mg 10/12/19 13:00 10/15/19 12:42 Tylenol Tab* PO 975 mg Q8H SHIRA Administration Al Hydrox/Mg Hydrox/Simethicone 30 ml 10/12/19 11:38 Maalox Plus* PO Q6H PRN INDIGESTION Allopurinol 300 mg 10/12/19 18:00 10/15/19 17:21 Zyloprim Tab* PO 300 mg QPM SHIRA Administration Amiodarone HCl 200 mg 10/13/19 09:00 10/15/19 08:35 Cordarone Tab* PO 200 mg DAILY SHIRA Administration Apixaban 5 mg 10/12/19 21:00 10/15/19 08:34 Eliquis* PO 5 mg BID SHIRA Administration Atorvastatin Calcium 20 mg 10/12/19 21:00 10/14/19 19:46 Lipitor* PO 20 mg 2100 SHIRA Administration Bisacodyl 10 mg 10/12/19 11:38 Dulcolax Supp* [place] DAILY PRN CONSTIPATION Carvedilol 25 mg 10/12/19 21:00 10/15/19 08:41 Coreg Tab* PO 25 mg BID SHIRA Administration Cyclobenzaprine HCl 10 mg 10/12/19 11:50 Flexeril Tab* PO TID PRN muscle spasm Docusate Sodium 100 mg 10/12/19 21:00 10/15/19 08:39 Colace Cap* PO 100 mg BID SHIRA Administration Ferrous Sulfate 325 mg 10/12/19 18:00 10/15/19 17:21 Ferrous Sulfate Tab* PO 325 mg QPM SHIRA Administration Finasteride 5 mg 10/12/19 18:00 10/15/19 17:21 Proscar Tab* PO 5 mg QPM SHIRA Administration Furosemide 20 mg 10/13/19 09:00 10/15/19 08:33 Lasix Tab* PO 20 mg DAILY SHIRA Administration Magnesium Hydroxide 30 ml 10/12/19 11:38 Milk Of Magnesia Liq* PO Q6H PRN CONSTIPATION Mometasone Furoate/Formoterol Fumar 2 puff 10/12/19 21:00 10/15/19 07:46 Dulera 200/5 Mdi* INH 2 puff BID SHIRA Administration Multivitamins/Minerals 1 tab 10/13/19 09:00 10/15/19 08:33 Theragran/Minerals Tab* PO 1 tab DAILY SHIRA Administration Oxycodone HCl 5 mg 10/12/19 11:52 10/15/19 08:36 Roxycodone Tab* PO 5 mg Q4H PRN Administration PAIN - MODERATE Oxycodone HCl 10 mg 10/12/19 11:53 Roxycodone Tab* PO Q4H PRN PAIN - SEVERE Pantoprazole Sodium 40 mg 10/13/19 09:00 10/15/19 08:35 Protonix Tab* PO 40 mg DAILY SHIRA Administration Polyethylene Glycol/Electrolytes 17 gm 10/13/19 09:00 10/15/19 08:41 Miralax* PO Not Given DAILY SHIRA Senna 2 tab 10/12/19 21:00 10/14/19 19:37 Senokot 8.6 Mg Tab* PO Not Given BEDTIME SHIRA Tiotropium [place] 2 puff 10/13/19 09:00 10/15/19 07:46 Spiriva Respimat 2.5 Mcg INH 2 puff DAILY SHIRA Administration Vital Signs: Vital Signs Temp Pulse Resp BP Pulse Ox 98.6 F 75 20 158/74 94 10/15/19 16:09 10/15/19 16:09 10/15/19 16:09 10/15/19 16:09 10/15/19 16:10 Lab Results: Laboratory Results - last 24 hr 10/14/19 10/15/19 10/15/19 20:27 07:41 11:39 POC Glucose (mg/dL) 124 H 121 H 139 H 10/15/19 16:32 POC Glucose (mg/dL) 139 H Exam: GENERAL: In no distress LUNGS: Clear bilaterally HEART: Reg rhythm ABDOMEN: Soft, +BS EXTREMITIES: left knee suture line C/D/I. Some ecchymoses proximally NEUROLOGIC: A&O; strength 5/5 except LLE due to pain Assessment/Plan: 1, Left total knee replacement: PT/OT 2. Paroxysmal atrial fibrillation: Eliquis/Amio/Coreg 3. COPD: Dulera/Spiriva 4. Diabetes: Controlled by diet. Fingersticks ok 5. Urinary leakage: On Proscar, improving 6. DVT Prophylaxis: Eliquis 7. Advance Directives: Full code. is surrogate decision maker. 10/15/19 18:53
[2019-10-15] MEDS: Atorvastatin* 20 MG TAB PO SCH (19:48)
[2019-10-15] MEDS: Senna TAB 8.6 mg* TAB PO SCH (19:52)
[2019-10-15] MEDS ORDERED: Calcium Carbonate CHEW TAB* 500 MG (TUMS) PO PRN (20:25)
[2019-10-16] MEDS: Acetaminophen TAB* 325 MG PO SCH ×2 (05:28→12:07)
[2019-10-16 06:52] VITALS: BP 134/59
[2019-10-16] MEDS: Apixaban* 5 MG TAB PO SCH (09:31)
[2019-10-16] MEDS: Amiodarone TAB* 200 MG PO SCH (09:31)
[2019-10-16] MEDS: Carvedilol TAB* 25 MG PO SCH (09:31)
[2019-10-16] MEDS: Pantoprazole TAB * 40 MG TAB PO SCH (09:31)
[2019-10-16] MEDS: Multivitamins/Minerals TAB PO SCH (09:31)
[2019-10-16] MEDS: Furosemide TAB* 20 MG PO SCH (09:31)
[2019-10-16] MEDS: Mometasone/Formoter 200/5 MDI INH SCH (09:32)
[2019-10-16] MEDS: SPIRIVA Respimat* (tiotropium) 2.5 mcg/inh Inhaler INH SCH (09:33)
[2019-10-16] MEDS: oxyCODONE TAB* 5 MG TAB PO PRN (09:47)
[2019-10-16] MEDS: Docusate CAP* 100 MG PO SCH (11:54)
[2019-10-16] MEDS: Polyethylene Glycol 3350* 17 GM PACKET PO SCH (11:54)
--- NOTE | 2019-10-16 20:39 | DS ---
CC: Dr. Carrol Powell * DISCHARGE SUMMARY: DATE OF ADMISSION: 10/12/19 DATE OF DISCHARGE: 10/16/19 DISCHARGE DIAGNOSES: 1. Left total knee replacement. 2. Diabetes mellitus. 3. COPD. 4. Chronic kidney disease. 5. Paroxysmal atrial fibrillation. 6. Obesity. 7. Hypertension. 8. Hyperlipidemia. 9. Sleep apnea. HISTORY OF ILLNESS AND HOSPITAL COURSE: For complete history of the events leading up to his rehab stay, please see the history and physical dictated by Dr. Bettye Bullard on 10/12/19. While on the rehab unit, the patient did develop urinary leakage or having difficulty holding his urine between voiding sessions. This happened on his first day on the rehab unit, but this quickly resolved. He said something similar happened when he had a total hip done 3 years ago. A urinalysis was sent, which was negative. He was maintained on Eliquis for his atrial fibrillation and also for DVT prophylaxis. He also remained on amiodarone and Coreg for his atrial fibrillation. For his diabetes, it was controlled by diet, but his fingersticks were good. He was covered several times for high fingersticks with Lispro insulin, but it became rare as his hospitalization progressed. The patient was otherwise medically stable. He did have some ecchymotic areas in his left leg, which was not surprising given his chronic Eliquis use. The patient was seen by both physical and occupational therapy and made good gains with both disciplines. With physical therapy at the time of admission, the patient required mod assist for bed mobility, he was mod assist to do a transfer, mod assist to ambulate about 50 feet. With occupational therapy at the time of admission, the patient was set up for upper body dressing, max assist for lower body dressing, dependent for donning and doffing footwear, mod assist for bathing, and supervision for toileting and toilet transfers. By the time of discharge, the patient was independent in transfers, independent ambulating 150 feet or more. He required setup to go up a flight of stairs. The setup was just to place his walker. He was independent in toileting, independent in dressing, independent in toilet transfers, independent in bathing. The patient was discharged home on 10/16/19 with his . DISPOSITION: Home. CONDITION ON DISCHARGE: Stable. DISCHARGE DIET: Consistent carbohydrate. DISCHARGE MEDICATIONS: Included Tylenol 975 mg every 8 hours as needed, allopurinol 300 mg every evening, amiodarone 200 mg daily, Eliquis 5 mg twice daily, Coreg 25 mg twice daily, Proscar 5 mg every evening, Lasix 20 mg daily, oxycodone 5 mg every 4 hours as needed and not to exceed 3 per day, Spiriva 1 inhalation every morning, rosuvastatin 10 mg every evening, Advair Diskus 1 puff inhaled twice daily, pantoprazole 40 mg every morning. SERVICES AFTER DISCHARGE: Through [facility]. He will have home physical therapy, home health aide with home occupational therapy. FOLLOWUP: Follow up with Dr. Sydney Cunningham in 1 to 2 weeks. He will also follow up with Dr. Carrol Powell, his primary care provider. TIME SPENT: Time spent for this discharge was approximately 50 minutes, greater than half of that was spent with the patient and his explaining post rehabilitation services, therapies, and medications. [id number]/[facility] #: [id number] YAYA
== END 2019-10-16 13:40 | disposition home health service (06) | DRG 560 ==
LOC: PMRU 12:47
PROVIDERS: ADMIT Physical Medicine & Rehabilitation; ATTEND Physical Medicine & Rehabilitation
PROC: F07Z5ZZ Bed Mobility Treatment (ICD-10-PCS; principal; 2019-10-12)
PROC: F07Z9ZZ Gait Training/Functional Ambulation Treatment (ICD-10-PCS; 2019-10-12)
PROC: F07Z8ZZ Transfer Training Treatment (ICD-10-PCS; 2019-10-12)
PROC: F08Z0ZZ Bathing/Showering Techniques Treatment (ICD-10-PCS; 2019-10-12)
PROC: F08Z1ZZ Dressing Techniques Treatment (ICD-10-PCS; 2019-10-12)
PROC: F08Z3ZZ Feeding/Eating Treatment (ICD-10-PCS; 2019-10-12)
PROC: F08Z2ZZ Grooming/Personal Hygiene Treatment (ICD-10-PCS; 2019-10-12)
DX: Z47.1 Aftercare following joint replacement surgery (principal); Z68.43 Body mass index [BMI] 50.0-59.9, adult; E87.1 Hypo-osmolality and hyponatremia; D62 Acute posthemorrhagic anemia; D69.6 Thrombocytopenia, unspecified; Z96.652 Presence of left artificial knee joint; J44.9 Chronic obstructive pulmonary disease, unspecified; E11.22 Type 2 diabetes mellitus with diabetic chronic kidney disease; I12.9 Hypertensive chronic kidney disease with stage 1 through stage 4 chronic kidney disease, or unspecified chronic kidney disease; N18.9 Chronic kidney disease, unspecified; I48.0 Paroxysmal atrial fibrillation; E66.9 Obesity, unspecified; E78.5 Hyperlipidemia, unspecified; G47.33 Obstructive sleep apnea (adult) (pediatric); R32 Unspecified urinary incontinence; K21.9 Gastro-esophageal reflux disease without esophagitis; Z96.641 Presence of right artificial hip joint; K59.00 Constipation, unspecified; N40.0 Benign prostatic hyperplasia without lower urinary tract symptoms; Z99.81 Dependence on supplemental oxygen; Z79.01 Long term (current) use of anticoagulants; Z79.1 Long term (current) use of non-steroidal anti-inflammatories (NSAID); Z79.899 Other long term (current) drug therapy; Z82.49 Family history of ischemic heart disease and other diseases of the circulatory system; Z80.3 Family history of malignant neoplasm of breast; Z80.42 Family history of malignant neoplasm of prostate; Z82.5 Family history of asthma and other chronic lower respiratory diseases; Z99.89 Dependence on other enabling machines and devices
CPT/HCPCS: 36415; 80053; 85025; 94640; A9270-GY; J3535